=== PATIENT | male | born 1990 | race Caucasian/White ===

== ENCOUNTER 2020-05-11 17:01 | Emergency (ER) | payer MEDICAID, SELFPAY ==
[2020-05-11 17:10] VITALS: BP 122/60; PULSE 99; RESP 18; TEMP 36.9; O2SAT 100; BMI 27.8
--- NOTE | 2020-05-11 17:16 | PC.NURSE ---
pupil 4mm and reactive. is on phone for entirety of triage, talking to girlfriend.
[2020-05-11 17:30] LABS: MANUAL DIFF FLAG NO
[2020-05-11 17:34] LABS: Basophils Percent Auto 0.3 % (0-2); Eosinophils Percent Auto 0.3 % (0-4); Hematocrit 40.3 % (42-52); Hemoglobin 14.1 g/dl (14.0-18.0); Imm Gran Abs Auto 0.02 X10*3/uL (0.00-0.03); Imm Gran Pct Auto 0.3 % (0.0-0.4); Lymphocytes Absolute Auto 1.2 X10*3/uL (1.2-4.9); Lymphocytes Percent Auto 18.2 % (20-40); Mean Corpuscular Hemoglobin 30.2 pg (27.0-33.0); Mean Corpuscular Volume 86.3 fL (80-98); Mean Platelet Volume 10.3 fL (9.4-12.4); Monocytes Absolute Auto 0.6 X10*3/uL (0.1-1.2); Monocytes Percent Auto 9.3 % (2-11); Neutrophils Absolute Auto 4.8 X10*3/uL (2.0-8.3); Neutrophils Percent Auto 71.6 % (45-73); Platelet Count 233 X10*3/uL (160-400); Red Blood Count 4.67 X10*6/uL (4.60-5.80); Red Cell Distribution Width 11.7 % (11.0-16.0); White Blood Count 6.7 X10*3/uL (4.8-10.8)
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
[2020-05-11 18:08] LABS: Alanine Aminotransferase 17 U/L (0-40); Albumin Level 4.7 g/dL (3.5-5.0); Alkaline Phosphatase 57 U/L (39-117); Anion Gap 16 (12-20); Aspartate Amino Transferase 19 U/L (5-37); Bilirubin Direct 0.6 mg/dL (0.0-0.5); Bilirubin Total 1.5 mg/dL (0.0-1.0); Blood Urea Nitrogen 9 mg/dL (9-16); Calcium 9.5 mg/dL (8.4-10.2); Carbon Dioxide 25 mmol/L (22-29); Chloride 101 mmol/L (96-108); Creatinine Clr Calc Pharmacy 108.9; Estimated Glomerular Filt Rate > 60; Glucose Random 101 mg/dL (60-115); Magnesium 1.9 mg/dL (1.6-2.6); Potassium 3.1 mmol/l (3.3-5.1); Sodium 139 mmol/L (135-145); Total Protein 7.4 g/dL (6.5-8.0)
[2020-05-11] MEDS: lamoTRIgine 100 MG TABLET 200 MG PO (18:27)
[2020-05-11] MEDS: Ketorolac Tromethamine 30 MG/ML VIAL IVPUSH (18:27)
[2020-05-11 18:30] VITALS: BP 110/68; PULSE 66; RESP 18; O2SAT 95
--- NOTE | 2020-05-11 18:34 | PC.NURSE ---
Pt is more coherent. Speech is clear and at baseline pace. Skin pwd. No neuro deficits noted.
[2020-05-11] MEDS: Potassium Bicarbonate/Cit AC 25 MEQ TABLET.EFF PO (19:12)
== END 2020-05-11 19:17 | disposition home or self-care (01) ==
PROVIDERS: Emergency Provider Internal Medicine
DX: G40.909 Epilepsy, unspecified, not intractable, without status epilepticus (principal)
CPT/HCPCS: 36415; 80048; 80076; 83735; 85025; 96374; 99284; J1885

== ENCOUNTER 2020-05-13 19:08 | Emergency (ER) | payer MEDICAID, SELFPAY ==
[2020-05-13 19:28] VITALS: BP 146/78; PULSE 70; RESP 16; TEMP 36.8; O2SAT 99; BMI 29.2
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
--- NOTE | 2020-05-13 21:40 | PC.NURSE ---
PT IS UNABLE TO TOLERATE IM INJECTION. PT STATES HE IS HIGHLY AFRAID OF NEEDLES.
== END 2020-05-13 22:40 | disposition home or self-care (01) ==
PROVIDERS: Emergency Provider Emergency Medicine; PCP Internal Medicine
DX: M94.0 Chondrocostal junction syndrome [Tietze] (principal); S20.213A Contusion of bilateral front wall of thorax, initial encounter; Y35.93XA Legal intervention, means unspecified, suspect injured, initial encounter; Y93.9 Activity, unspecified; Y92.9 Unspecified place or not applicable; Y99.9 Unspecified external cause status
CPT/HCPCS: 71045; 96372; 99284; J1885

== ENCOUNTER 2020-06-15 21:34 | Emergency (ER) | payer MEDICAID, SELFPAY ==
[2020-06-15 21:42] VITALS: BP 147/72; PULSE 84; RESP 16; TEMP 37.2; O2SAT 100; BMI 29.2
--- NOTE | 2020-06-15 22:00 | ED_ITS ---
HPI - Skin/Abscess/Foreign Bdy General Chief complaint: Skin/Abscess/Foreign Body Stated complaint: Glued object to finger Time Seen by Provider: 06/15/20 22:00 Source: patient Mode of arrival: ambulatory Limitations: no limitations History of Present Illness HPI narrative: Patient comes to the emergency room with some loose tick to his left hand. Patient states he was gluing things together, he did not notice that it was glued on his fingers and the stick flew right his fingers and he was unable to get off. Patient denies any burning sensation, no significant skin irritation per patient. Related Data Allergies Allergy/AdvReac Type Severity Reaction Status Date / Time clindamycin [CLINDAMYCIN] Allergy Mild RASH Verified 05/11/20 17:10 beeswax [BEESWAX] Allergy Unknown UNK Verified 05/11/20 17:10 caffeine [CAFFEINE] Allergy Unknown UNK Verified 05/11/20 17:10 coconut [COCONUT] Allergy Unknown UNKNOWN Verified 05/11/20 17:10 shellfish derived Allergy Unknown UNK Verified 05/11/20 17:10 [SHELLFISH DERIVED] Sulfa (Sulfonamide Allergy Unknown UNKNOWN Verified 05/11/20 17:10 Antibiotics) [SULFA (SULFONAMIDE ANTIBIOTICS)] lorazepam [From ATIVAN] AdvReac Unknown MOOD CHANGE Verified 05/11/20 17:10 CHOCOLATE Allergy Unknown UNK Uncoded 04/15/20 16:10 Review of Systems Review of Systems: Constitutional : No Weight loss, No Fever, No Chills, No Night Sweats, No Fatigue, No Malaise ENT/Mouth : No Hearing loss, No Ear Pain, No Nasal Congestion, No Sinus Pain, No Hoarseness, No sore throat, No Rhinorrhea, No Swallowing Difficulty Eyes: No Eye Pain, No Swelling, No Redness, No Foreign Body, No Discharge, No Vision Changes Cardiovascular : No Chest Pain, No SOB, No Dyspnea on Exertion, No Orthopnea, No Edema, No Palpitations Respiratory : No Cough, No Sputum, No Wheezing, No Smoke Exposure, No Dyspnea Gastrointestinal : No Nausea, No Vomiting, No Diarrhea, No Constipation, No abdominal Pain, No Hematochezia, No Melena Genitourinary : no irregular bleeding, No Dysuria, No Urinary Frequency, No Hematuria, No Urinary Incontinence, No Urgency, No Flank Pain, No Urinary Flow Changes, No Hesitancy Musculoskeletal : No joint pain, No Myalgias, No Joint Swelling Skin : Glucose stick stuck to the patient's 4th left finger Neuro : No Weakness, No Numbness, No Paresthesias, No Loss of Consciousness, No Dizziness, No Headache Psych : No Anxiety/Panic, No Depression, No SI/HI/AH/VH, No Social Issues, Heme/Lymph: No Bruising, No Bleeding,No Lymphadenopathy Endocrine : No Polyuria, No Polydipsia, No Temperature Intolerance [facility] Past Medical History Medical History Seizure Social History Social History Alcohol intake: never Smoking Status: Unknown if ever smoked Smoked in Last 30 Days: No Use of substances other than those prescribed or required for medical reasons: No Advance Directives: No Advance Directives Information Provided: Yes Physical Exam Vital Signs: Vital Signs: Last Vital Signs Temp 99.0 F 06/15/20 21:42 Pulse 84 06/15/20 21:42 Resp 16 06/15/20 21:42 BP 147/72 H 06/15/20 21:42 Pulse Ox 100 06/15/20 21:42 Body Mass Index 29.2 Appearance: Alert. Oriented X3. No acute distress. Eyes: Pupils equal, round and reactive to light. ENT: Pharynx normal. Neck: Normal inspection. Neck supple. No lymph nodes noted. No crepitus CVS: Normal heart rate and rhythm. Pulses normal. Normal S1 and S2 Respiratory: No respiratory distress. Breath sounds normal. No Wheezing. No rales Abdomen: Soft and nontender. No rigidity. No distention. good BS x4 Skin: Skin warm , most of the glue came off Extremities: No lower extremity edema. No lower extremity edema. No Lacerations. No Rash Neuro: Oriented X 3. No motor deficit. No sensory deficit. Moving all extermities. No slurred speech. Course Course Course Narrative: Adhesive tape removal wipes were used to remove the glue and were clearly well for the patient. Patient has minimal amount in his fingers, which will likely ventrally peel off. No signs of irritation Discharge Plan Discharge Clinical Impression: Glued skin wound, Skin lesion of hand Patient Disposition: Home, Self-Care Additional Instructions: Please be careful when using Super glue. Please follow-up with your primary care physician tomorrow. If you have any worsening or new symptoms, please return to the emergency room or call 911
--- NOTE | 2020-06-15 22:19 | PC.NURSE ---
SUPER GLUE REMOVED FROM LEFT POINTER FINGER BY DR. VILLALTA.
== END 2020-06-15 22:23 | disposition home or self-care (01) ==
PROVIDERS: Emergency Provider Emergency Medicine; PCP Internal Medicine
DX: S60.922A Unspecified superficial injury of left hand, initial encounter (principal); M79.642 Pain in left hand; Y33.XXXA Other specified events, undetermined intent, initial encounter; Y93.9 Activity, unspecified; Y92.9 Unspecified place or not applicable; Y99.9 Unspecified external cause status
CPT/HCPCS: 99284

== ENCOUNTER 2020-06-20 23:01 | Emergency (ER) | payer MEDICAID, SELFPAY ==
[2020-06-20 23:26] VITALS: BP 128/77; PULSE 68; RESP 20; TEMP 37.1; O2SAT 96; BMI 25.9
[2020-06-20 23:48] LABS: Basophils Percent Auto 0.2 % (0-2); Eosinophils Absolute Auto 0.1 X10*3/uL (0.0-0.4); Eosinophils Percent Auto 0.6 % (0-4); Hematocrit 43.4 % (42-52); Hemoglobin 14.7 g/dl (14.0-18.0); Imm Gran Abs Auto 0.07 X10*3/uL (0.00-0.03); Imm Gran Pct Auto 0.8 % (0.0-0.4); Lymphocytes Absolute Auto 2.2 X10*3/uL (1.2-4.9); Lymphocytes Percent Auto 24.1 % (20-40); MANUAL DIFF FLAG NO; Mean Corpuscular HGB Conc 33.9 g/dl (31.0-36.0); Mean Corpuscular Hemoglobin 30.3 pg (27.0-33.0); Mean Corpuscular Volume 89.5 fL (80-98); Mean Platelet Volume 10.1 fL (9.4-12.4); Monocytes Absolute Auto 0.8 X10*3/uL (0.1-1.2); Monocytes Percent Auto 9.1 % (2-11); Neutrophils Absolute Auto 5.9 X10*3/uL (2.0-8.3); Neutrophils Percent Auto 65.2 % (45-73); Platelet Count 275 X10*3/uL (160-400); Red Blood Count 4.85 X10*6/uL (4.60-5.80); White Blood Count 9.1 X10*3/uL (4.8-10.8)
--- NOTE | 2020-06-20 23:48 | PC.NURSE ---
spoke with patient's mother (Marquita) over the phone ([phone]). Marquita states that her son takes Lamictal 150mg BID and is seen by at [facility]. Pt has known seizure history, normally uses [facility] in [place]. Multiple allergies confirmed by mother. notified. Mother requests updates when available. Given status update.
--- NOTE | 2020-06-21 | CT_ITS ---
EXAMINATION: CT HEAD WITHOUT CONTRAST CLINICAL INFORMATION: Status post fall with seizure COMPARISON: 03/31/2015 TECHNIQUE: Contiguous axial imaging was performed from the skull base to vertex without intravenous administration of contrast. This CT examination was performed using dose optimization techniques as appropriate, variously including the following: *Automated exposure control *Adjustment of mA and/or kV according to patient size (this includes techniques or standardized protocols for targeted exams where dose is matched to indication/reason for exam; i.e. extremities or head) *Use of iterative reconstruction technique DLP: 803 mGy-cm FINDINGS: There is no evidence of acute intracranial hemorrhage or territorial infarction. No abnormal mass effect or midline shift is seen. Sosa to white matter differentiation is well preserved. No extra-axial fluid collections are identified. The ventricles are normal in size. There is no abnormal attenuation within the brain parenchyma. The osseous structures and soft tissues are normal. Mucosal thickening in the maxillary sinuses and suspected right maxillary sinus mucus retention cyst. The mastoid air cells are well-aerated. CT/CT head/brain wo con IMPRESSION: No acute intracranial pathology.
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
[2020-06-21 00:21] LABS: Alanine Aminotransferase 16 U/L (0-40); Albumin Level 4.4 g/dL (3.5-5.0); Alkaline Phosphatase 61 U/L (39-117); Anion Gap 13 (12-20); Aspartate Amino Transferase 19 U/L (5-37); Bilirubin Direct 0.2 mg/dL (0.0-0.5); Bilirubin Total 0.3 mg/dL (0.0-1.0); Blood Urea Nitrogen 8 mg/dL (9-16); Carbon Dioxide 28 mmol/L (22-29); Chloride 103 mmol/L (96-108); Creatinine Clr Calc Pharmacy 110.4; Estimated Glomerular Filt Rate > 60; Glucose Random 81 mg/dL (60-115); Potassium 3.7 mmol/l (3.3-5.1); Sodium 140 mmol/L (135-145)
--- NOTE | 2020-06-21 00:22 | PC.NURSE ---
IMAGING IN PROGRESS AT THIS TIME. WILL CONTINUE TO MONITOR UPON RETURN TO ED BED 22. SEIZURE PRECAUTIONS REMAIN IN PLACE. PT REMAINS CONFUSED/POST-ICTAL. 18G IV ACCESS ESTABLISHED IN RIGHT AC BY THIS RN. LABS PREVIOUSLY DRAWN AND SENT FOR ANALYSIS. AWAITING LAB RESULTS.
--- NOTE | 2020-06-21 00:33 | PC.NURSE ---
PATIENT SLEEPING AT THIS TIME, RE-POSITIONED HIMSELF TO LEFT SIDE. AWAITING RESULTS. RESPIRATIONS EVEN/UNLABORED. WILL CONTINUE TO MONITOR. SEIZURE PRECAUTIONS REMAIN IN PLACE.
== END 2020-06-21 01:42 | disposition home or self-care (01) ==
PROVIDERS: Emergency Provider Internal Medicine; PCP Internal Medicine
DX: R56.9 Unspecified convulsions (principal); Z79.899 Other long term (current) drug therapy
CPT/HCPCS: 36415; 70450; 80048; 80076; 85025; 99283; 99284

== ENCOUNTER 2020-06-23 00:53 | Emergency (ER) | payer MEDICAID, SELFPAY ==
[2020-06-23 01:01] VITALS: BP 125/79; BP 147/74; PULSE 66; PULSE 80; RESP 16; TEMP 37.2; O2SAT 95; O2SAT 99; BMI 30.1
--- NOTE | 2020-06-23 01:02 | ED.SEIZURE ---
HPI - Seizure General Chief Complaint: Seizure Stated Complaint: MULTIPLE SEIZURES Time Seen by Provider: 06/23/20 00:59 Source: patient and family Mode of arrival: ambulatory History of Present Illness HPI Narrative: As per EMS family witnessed 2 seizures at home. And was combative afterwards. However upon arrival to the emergency department patient was, collected and states that he had seizure. Patient states he is on Lamictal and has been taking it. Denies any recent illness, fevers chills, nausea vomiting or abdominal pain. Patient was here several days ago in the emergency department for similar and has not followed up with the neurologist complaint: seizure Onset (ago): hour(s) Description of Episode: loss of consciousness Witnessed: Yes - by Bystander Seizure History: Yes Possible Precipitating Event: none Related Data Home Medications Medication Instructions Recorded Confirmed lamotrigine 350 mg PO DAILY 06/23/20 06/23/20 Allergies Allergy/AdvReac Type Severity Reaction Status Date / Time clindamycin [CLINDAMYCIN] Allergy Mild RASH Verified 05/11/20 17:10 beeswax [BEESWAX] Allergy Unknown UNK Verified 05/11/20 17:10 caffeine [CAFFEINE] Allergy Unknown UNK Verified 05/11/20 17:10 coconut [COCONUT] Allergy Unknown UNKNOWN Verified 05/11/20 17:10 shellfish derived Allergy Unknown UNK Verified 05/11/20 17:10 [SHELLFISH DERIVED] Sulfa (Sulfonamide Allergy Unknown UNKNOWN Verified 05/11/20 17:10 Antibiotics) [SULFA (SULFONAMIDE ANTIBIOTICS)] lorazepam [From ATIVAN] AdvReac Unknown MOOD CHANGE Verified 05/11/20 17:10 CHOCOLATE Allergy Unknown UNK Uncoded 04/15/20 16:10 Review of Systems Review of Systems: Constitutional : No Weight loss, No Fever, No Chills, No Night Sweats, No Fatigue, No Malaise ENT/Mouth : No Hearing loss, No Ear Pain, No Nasal Congestion, No Sinus Pain, No Hoarseness, No sore throat, No Rhinorrhea, No Swallowing Difficulty Eyes: No Eye Pain, No Swelling, No Redness, No Foreign Body, No Discharge, No Vision Changes Cardiovascular : No Chest Pain, No SOB, No Dyspnea on Exertion, No Orthopnea, No Edema, No Palpitations Respiratory : No Cough, No Sputum, No Wheezing, No Smoke Exposure, No Dyspnea Gastrointestinal : No Nausea, No Vomiting, No Diarrhea, No Constipation, No abdominal Pain, No Hematochezia, No Melena Genitourinary : no irregular bleeding, No Dysuria, No Urinary Frequency, No Hematuria, No Urinary Incontinence, No Urgency, No Flank Pain, No Urinary Flow Changes, No Hesitancy Musculoskeletal : No joint pain, No Myalgias, No Joint Swelling Skin : No Skin Lesions, No rash Neuro : No Weakness, No Numbness, No Paresthesias, positive Loss of Consciousness, No Dizziness, No Headache Psych : No Anxiety/Panic, No Depression, No SI/HI/AH/VH, No Social Issues, Heme/Lymph: No Bruising, No Bleeding,No Lymphadenopathy Endocrine : No Polyuria, No Polydipsia, No Temperature Intolerance [facility] Past Medical History Medical History Seizure Family History Family History (Updated 06/23/20 @ 01:08 by Andre Whalen DO) Other Family history non-contributory Social History Social History Alcohol intake: never Smoking Status: Unknown if ever smoked Smoked in Last 30 Days: No Use of substances other than those prescribed or required for medical reasons: Yes Advance Directives: No Advance Directives Information Provided: No Physical Exam Vital Signs: Vital Signs: Last Vital Signs Temp 98 F 06/23/20 04:00 Pulse 58 06/23/20 04:00 Resp 15 06/23/20 04:00 BP 101/54 L 06/23/20 04:00 Pulse Ox 98 06/23/20 04:00 Body Mass Index 30.1 Appearance: Alert. Oriented X3. No acute distress. Eyes: Pupils equal, round and reactive to light. ENT: Pharynx normal. Neck: Normal inspection. Neck supple. No lymph nodes noted. No crepitus CVS: Normal heart rate and rhythm. Pulses normal. Normal S1 and S2 Respiratory: No respiratory distress. Breath sounds normal. No Wheezing. No rales Abdomen: Soft and nontender. No rigidity. No distention. good BS x4 Skin: Skin warm and dry. Normal skin color. Normal skin turgor. Extremities: No lower extremity edema. Neurovascular intact to all extremities. No Lacerations. No Rash Neuro: Oriented X 3. No motor deficit. No sensory deficit. Moving all extermities. No slurred speech. Course Course Course Narrative: Patient in the emergency department given 0.5 mg Ativan. Patient did not have a seizure in the emergency department. We had a long discussion in regards to his Lamictal however he refuses to increase it. Which was discussed with him last visit. Patient states he rather wait to call his neurologist in the morning under further directions for his medications. I offered prescription for Ativan however he states he does not want. Laboratory work within normal limits MDM - Seizure MDM Narrative Medical decision making narrative: 29-year-old male status post seizure at home. Patient refusing to increase his home medications and prefers to wait until he talks as neurologist. I offered to call neurologist however patient declines and wants to go home. Laboratory work within normal limits. At this point I doubt the patient has encephalitis or some type of infection patient states that he has been very difficult to manage his seizures with different medications Medical Records Attestation: I reviewed the patient's medical records. Medical records narrative: Patient was here several days ago a CT scan negative brain. Was discharged with increased Lamictal secondary to seizure Patient has been seen here before for seizures in which has been documented that he has been highly resistant to medications for his seizures Lab Data Attestation: I reviewed the patient's lab results. Result diagrams: 06/23/20 01:22 06/23/20 01:22 Labs: Lab Results 06/23/20 06/23/20 Range/Units 01:22 01:22 WBC 9.0 (4.8-10.8) X10*3/uL RBC 4.91 (4.60-5.80) X10*6/uL Hgb 14.7 (14.0-18.0) g/dl Hct 42.9 (42-52) % MCV 87.4 (80-98) fL MCH 29.9 (27.0-33.0) pg MCHC 34.3 (31.0-36.0) g/dl RDW 11.0 (11.0-16.0) % Plt Count 261 (160-400) X10*3/uL MPV 10.1 (9.4-12.4) fL Immature Gran % (Auto) 1.0 H (0.0-0.4) % Neut % (Auto) 64.9 (45-73) % Lymph % (Auto) 22.9 (20-40) % [place] % (Auto) 10.3 (2-11) % Eos % (Auto) 0.7 (0-4) % Baso % (Auto) 0.2 (0-2) % Lymph # (Auto) 2.1 (1.2-4.9) X10*3/uL [place] # (Auto) 0.9 (0.1-1.2) X10*3/uL Eos # (Auto) 0.1 (0.0-0.4) X10*3/uL Baso # (Auto) 0.0 (0.0-0.2) X10*3/uL Abs Immat Gran (auto) 0.09 H (0.00-0.03) X10*3/uL Absolute Neuts (auto) 5.8 (2.0-8.3) X10*3/uL Absolute Nucleated RBC 0.000 (0.0-0.012) X10*3/uL Nucleated RBC % (auto) 0.0 (0.0-0.2) /100WBC Sodium 139 (135-145) mmol/L Potassium 3.7 (3.3-5.1) mmol/l Chloride 104 (96-108) mmol/L Carbon Dioxide 25 (22-29) mmol/L Anion Gap 14 (12-20) BUN 13 D (9-16) mg/dL Creatinine 0.83 (0.5-1.4) mg/dL Estim Creat Clear Calc 150.7 Estimated GFR > 60 Random Glucose 93 (60-115) mg/dL Calcium 9.5 (8.4-10.2) mg/dL Magnesium 2.1 (1.6-2.6) mg/dL Discharge Plan Discharge Clinical Impression: Epileptic seizure Patient Disposition: Home, Self-Care Instructions: Epilepsy (ED) Additional Instructions: Thank you for visiting the emergency department today. If your symptoms worsen or do not resolve completely please return to the emergency department immediately or call 911. If you have any questions please call your primary care physician Prescriptions: No Action lamotrigine 200 mg Tablet 350 mg PO DAILY RF: 0 Referrals: [facility] [Provider Group] - 2 days Interventions: ED Discharge Assessment Last Done: 06/23/20 04:07 Discharge Date/Time: 06/23/20 04:07
[2020-06-23 01:08] VITALS: BP 147/74; PULSE 71; RESP 16; TEMP 37.2; O2SAT 97
[2020-06-23 01:35] LABS: MANUAL DIFF FLAG NO
[2020-06-23 01:38] LABS: Basophils Percent Auto 0.2 % (0-2); Eosinophils Absolute Auto 0.1 X10*3/uL (0.0-0.4); Eosinophils Percent Auto 0.7 % (0-4); Hematocrit 42.9 % (42-52); Hemoglobin 14.7 g/dl (14.0-18.0); Imm Gran Abs Auto 0.09 X10*3/uL (0.00-0.03); Lymphocytes Absolute Auto 2.1 X10*3/uL (1.2-4.9); Lymphocytes Percent Auto 22.9 % (20-40); Mean Corpuscular HGB Conc 34.3 g/dl (31.0-36.0); Mean Corpuscular Hemoglobin 29.9 pg (27.0-33.0); Mean Corpuscular Volume 87.4 fL (80-98); Mean Platelet Volume 10.1 fL (9.4-12.4); Monocytes Absolute Auto 0.9 X10*3/uL (0.1-1.2); Monocytes Percent Auto 10.3 % (2-11); Neutrophils Absolute Auto 5.8 X10*3/uL (2.0-8.3); Neutrophils Percent Auto 64.9 % (45-73); Platelet Count 261 X10*3/uL (160-400); Red Blood Count 4.91 X10*6/uL (4.60-5.80)
[2020-06-23 02:00] VITALS: BP 121/61; PULSE 51; RESP 17; O2SAT 97
[2020-06-23 02:12] LABS: Anion Gap 14 (12-20); Blood Urea Nitrogen 13 mg/dL (9-16); Calcium 9.5 mg/dL (8.4-10.2); Carbon Dioxide 25 mmol/L (22-29); Chloride 104 mmol/L (96-108); Creatinine Clr Calc Pharmacy 150.7; Estimated Glomerular Filt Rate > 60; Glucose Random 93 mg/dL (60-115); Magnesium 2.1 mg/dL (1.6-2.6); Potassium 3.7 mmol/l (3.3-5.1); Sodium 139 mmol/L (135-145)
[2020-06-23 04:00] VITALS: BP 101/54; PULSE 58; RESP 15; TEMP 36.6; O2SAT 98
== END 2020-06-23 04:07 | disposition home or self-care (01) ==
PROVIDERS: Emergency Provider Emergency Medicine
DX: G40.909 Epilepsy, unspecified, not intractable, without status epilepticus (principal); Z79.899 Other long term (current) drug therapy
CPT/HCPCS: 36415; 80048; 83735; 85025; 99283; 99284

== ENCOUNTER 2020-07-19 02:20 | Emergency (ER) | payer MEDICAID, SELFPAY ==
--- NOTE | 2020-07-19 02:17 | PC.NURSE ---
[facility] staff with patient, spoke briefly with patient, since patient was medicated with Ativan 2 mg, DCF worker decided to come tomorrow, wanted us to give them call [facility] hotline @ [phone] and ask for Dolores Cast in the morning. and left.
--- NOTE | 2020-07-19 02:22 | PC.NURSE ---
[facility] with patient, patient engaged, will continue to monitor.
[2020-07-19 02:32] VITALS: BP 133/76; BP 144/76; PULSE 61; PULSE 70; RESP 21; TEMP 36.6; O2SAT 97; O2SAT 99; BMI 28.4
--- NOTE | 2020-07-19 02:51 | CT_ITS ---
EXAMINATION: CT HEAD WITHOUT CONTRAST CLINICAL INFORMATION: Fall, seizure. COMPARISON: 06/21/2020. TECHNIQUE: Contiguous helical images of the brain were obtained without IV contrast. Multiplanar reconstructions were performed. DLP: 828 mGy-cm. FINDINGS: There are no pathologic extra-axial fluid collections. The lateral, third, fourth ventricles are nondilated and concordant with the appearance of the sulci. There is no evidence for acute intraparenchymal hemorrhage or infarct. There is neither mass nor mass effect. There is no shift of midline structures. There is a mucus retention cyst or polyp within the right maxillary sinus. There is moderate mucosal thickening to the left maxillary sinus. The paranasal sinuses and mastoid air cells are otherwise clear. There are no osseous lesions. CT/CT head/brain wo con IMPRESSION: No evidence for acute intracranial injury. Automated exposure control (Care Dose) Adjustment of the mA and/or kv according to patient size (this includes techniques or standardized protocols for targeted exams where dose is matched to indication / reason for exam; i.e. extremities or head).
--- NOTE | 2020-07-19 02:51 | ED.SEIZURE ---
HPI - Seizure General Chief Complaint: Seizure Stated Complaint: seizure Time Seen by Provider: 07/19/20 02:40 Source: patient Mode of arrival: ambulatory Limitations: no limitations History of Present Illness HPI Narrative: Patient's history of dullness tonic-clonic seizure for last 6 years used to be on Lamictal 375 mg daily ,started on Keppra but patient stopped stopped taking both medicines because of mood swings about 2 weeks ago. Patient had a seizure last week and today again while standing talking to his girlfriend felt funny and next thing he found himself on the ground hitting his head to the floor no other injuries seizures witnessed by his mother MD complaint: seizure Onset (ago): minute(s) Description of Episode: loss of consciousness Duration of episode: 3 -: minutes(s) Witnessed: Yes - by Other Trauma: Yes (head) Seizure History: Yes Place: Home Possible Precipitating Event: none Associated symptoms: denies other symptoms Treatments prior to arrival: none Related Data Home Medications Medication Instructions Recorded Confirmed lamotrigine 350 mg PO DAILY 06/23/20 06/23/20 Previous Rx's Medication Instructions Recorded lamotrigine [Lamictal] 25 mg PO DAILY 14 Days #14 tab 07/19/20 Allergies Allergy/AdvReac Type Severity Reaction Status Date / Time clindamycin [CLINDAMYCIN] Allergy Mild RASH Verified 07/19/20 02:32 beeswax [BEESWAX] Allergy Unknown UNK Verified 07/19/20 02:32 caffeine [CAFFEINE] Allergy Unknown UNK Verified 07/19/20 02:32 coconut [COCONUT] Allergy Unknown UNKNOWN Verified 07/19/20 02:32 shellfish derived Allergy Unknown UNK Verified 07/19/20 02:32 [SHELLFISH DERIVED] Sulfa (Sulfonamide Allergy Unknown UNKNOWN Verified 07/19/20 02:32 Antibiotics) [SULFA (SULFONAMIDE ANTIBIOTICS)] lorazepam [From ATIVAN] AdvReac Unknown MOOD CHANGE Verified 07/19/20 02:32 levetiracetam [From Keppra] AdvReac Agitated Verified 07/19/20 02:32 CHOCOLATE Allergy Unknown UNK Uncoded 07/19/20 02:32 Review of Systems Review of Systems: Constitutional : No Weight loss, No Fever, No Chills ENT/Mouth : No sore throat, No Rhinorrhea Eyes: No Eye Pain, No Swelling Cardiovascular : No Chest Pain, no Dyspnea on Exertion, No Orthopnea, No Edema, No Palpitations, no SOB Respiratory : No Cough, No Sputum Gastrointestinal : no Nausea, No Vomiting, No Diarrhea, No abdominal Pain, No Hematochezia, No Melena Genitourinary : No Dysuria, No Urinary Frequency Musculoskeletal : No joint pain, No Myalgias, No Joint Swelling Skin : No Skin Lesions, No rash Neuro : No Weakness, No Numbness, No Dizziness, Psych : No Anxiety/Panic, No Depression Heme/Lymph: No Bruising, No Lymphadenopathy Endocrine : No Polyuria, No Polydipsia All other systems reviewed and are negative PMFSH Past Medical History Medical History Seizure Family History Family History Other Family history non-contributory Social History Social History Alcohol intake: never Smoking Status: Unknown if ever smoked Smoked in Last 30 Days: No Use of substances other than those prescribed or required for medical reasons: No Any prior treatment program specific to substance use: No Advance Directives: No Advance Directives Information Provided: No Physical Exam Vital Signs: Vital Signs: Last Vital Signs Temp 97.8 F 07/19/20 02:32 Pulse 68 07/19/20 04:04 Resp 18 07/19/20 04:04 BP 118/70 07/19/20 04:04 Pulse Ox 96 07/19/20 04:04 Body Mass Index 28.4 Appearance: Alert. Oriented X3. No acute distress. Sleepy postictal Eyes: Pupils equal, round and reactive to light. ENT: Pharynx normal. Tongue normal Neck: Normal inspection. Neck supple. CVS: Normal heart rate and rhythm. Pulses normal. Respiratory: No respiratory distress. Breath sounds normal. Abdomen: Soft and nontender. Bowel sounds are present, no mass palpable, no CVA tenderness Skin: Skin warm and dry. Normal skin color. Normal skin turgor. Extremities: No lower extremity edema. Neuro: Oriented X 3. No motor deficit. No sensory deficit. MDM - Seizure MDM Narrative Medical decision making narrative: Patient's history of epilepsy used to be on Lamictal and a month ago started on Keppra also which he did not like patientstopped taking all medication all of a sudden 2 weeks ago, at this time came with a seizure at this time head CT is negative patient ambulatory will restart on Lamictal per patient request 25 mg daily for now advised to follow-up with neurologist patient's CT scan negative for any acute. Patient re-educated about not to stop medication all of a sudden for the side effects and follow with neurologist Discharge Plan Discharge Clinical Impression: Generalized seizure Patient Disposition: Home, Self-Care Instructions: Epilepsy (ED) Additional Instructions: See the neurologist for further workup start taking Lamictal for now Prescriptions: New lamotrigine [Lamictal] 25 mg tablet 25 mg PO DAILY 14 Days Qty: 14 RF: 0 No Action lamotrigine 200 mg Tablet 350 mg PO DAILY RF: 0 Referrals: Subha Reyes MD [Physician] - 1 week (Epilepsy) Stand Alone Forms: Work/School Release
[2020-07-19 04:04] VITALS: BP 118/70; PULSE 68; RESP 18; O2SAT 96
--- NOTE | 2020-07-19 04:23 | PC.NURSE ---
pt arrives via ambualnce harry x 3 with equal and non labored rr. pt skin wpd. iv established by [facility] 18 gauge left ac. pt speaking in clear and full sentences. pt neuro intact. pt not collared on arrival due to patient refusal. Pt has no obvious deformities at this time. pt states seizure hx starting in 2013. has been seen at [facility] and [place]. pt states he has tried lots of seizure medications. pt has adverse reaction to keppra and ativan it causes negative psychiatric problems with patient including self harm which patient denies at baseline and denies during admission. pt had 3-4 minute long tonic clonic seizure witnessed by phyllis where patient hit his head after falling from standing height. pt states headache but no injuries noted. plan for ct scan. seizure pads placed
--- NOTE | 2020-07-19 04:30 | PC.NURSE ---
ambulation challenge then dc per dr hatch
--- NOTE | 2020-07-19 04:32 | PC.NURSE ---
pt ambulated with a steady gait, dr hatch visualized patient.
== END 2020-07-19 04:47 | disposition home or self-care (01) ==
PROVIDERS: Emergency Provider Internal Medicine
DX: G40.409 Other generalized epilepsy and epileptic syndromes, not intractable, without status epilepticus (principal); Z91.14 Patient's other noncompliance with medication regimen
CPT/HCPCS: 70450; 99284

== ENCOUNTER 2020-08-08 01:02 | Emergency (ER) | payer MEDICAID, SELFPAY ==
[2020-08-08 01:10] VITALS: BP 132/78; BP 160/92; PULSE 64; PULSE 70; RESP 18; TEMP 36.9; O2SAT 96; O2SAT 97; BMI 29.2
--- NOTE | 2020-08-08 01:15 | PC.NURSE ---
PT PLACED ON HEART MONITOR, VITALS SIGNS TAKEN. PT IS A&O, NO SOB OR CHEST PAIN. PT COMPLAINING OF NECK AND LEG PAIN , C-SPINE PRECAUTIONS IN PLACE.
--- NOTE | 2020-08-08 02:48 | PC.NURSE ---
pt a&o, wanting to leave against medical advice. Pt has stable gate, on the phone call for ride. pt wanting IV to be removed and c-spine collar.
--- NOTE | 2020-08-08 03:03 | ED.GENADULT ---
HPI - General Adult General Chief complaint: Seizure Stated complaint: seizure Time Seen by Provider: 08/08/20 02:58 Source: patient Mode of arrival: EMS Limitations: no limitations History of Present Illness HPI narrative: 29-year-old male who presented to the emergency department for evaluation of injuries after seizure. The patient had to wait approximately 2 hours prior to being seen secondary to ER volume. When I went in to evaluate the patient he was on the phone. The patient refused to get off the phone. The patient told me that he did not want to be seen since he had waited too long and we did take him seriously and he wants to leave without being evaluated. I told the patient that I was in the room now to see him and that I would like to talk to examine him but he refused to talk to me and is requesting to leave against medical advice. Related Data Home Medications Medication Instructions Recorded Confirmed lamotrigine 350 mg PO DAILY 06/23/20 06/23/20 Previous Rx's Medication Instructions Recorded lamotrigine [Lamictal] 25 mg PO DAILY 14 Days #14 tab 07/19/20 Allergies Allergy/AdvReac Type Severity Reaction Status Date / Time clindamycin [CLINDAMYCIN] Allergy Mild RASH Verified 07/19/20 02:32 beeswax [BEESWAX] Allergy Unknown UNK Verified 07/19/20 02:32 caffeine [CAFFEINE] Allergy Unknown UNK Verified 07/19/20 02:32 coconut [COCONUT] Allergy Unknown UNKNOWN Verified 07/19/20 02:32 shellfish derived Allergy Unknown UNK Verified 07/19/20 02:32 [SHELLFISH DERIVED] Sulfa (Sulfonamide Allergy Unknown UNKNOWN Verified 07/19/20 02:32 Antibiotics) [SULFA (SULFONAMIDE ANTIBIOTICS)] lorazepam [From ATIVAN] AdvReac Unknown MOOD CHANGE Verified 07/19/20 02:32 levetiracetam [From Keppra] AdvReac Agitated Verified 07/19/20 02:32 CHOCOLATE Allergy Unknown UNK Uncoded 07/19/20 02:32 PMFSH Past Medical History Medical History Seizure Family History Family History Other Family history non-contributory Social History Social History Alcohol intake: never Smoking Status: Never smoker Use of substances other than those prescribed or required for medical reasons: No Advance Directives: No Advance Directives Information Provided: No Physical Exam Vital Signs: Vital Signs: Last Vital Signs Temp 98.4 F 08/08/20 01:10 Pulse 64 08/08/20 01:10 Resp 18 08/08/20 01:10 BP 132/78 08/08/20 01:10 Pulse Ox 96 08/08/20 01:10 Body Mass Index 29.2 Course Course Course Narrative: 29-year-old male with history of seizure disorders apparently noncompliant with medications. The patient does not want evaluated by wants to leave against medical advice. Patient appears to be awake alert and capable of understanding consequences of refusing care therefore he will be discharged against medical advise. Discharge Plan Discharge Clinical Impression: Seizure Patient Disposition: Left Against Medical Advice Additional Instructions: You are refusing to be examined. Your leaving the emergency department against medical advice. If you change your mind and want to be evaluated, please return to the emergency department. Prescriptions: No Action lamotrigine 200 mg Tablet 350 mg PO DAILY RF: 0 lamotrigine [Lamictal] 25 mg tablet 25 mg PO DAILY 14 Days Qty: 14 RF: 0 Stand Alone Forms: Against Medical Advice
--- NOTE | 2020-08-08 03:07 | PC.NURSE ---
PATIENTS MOTHER CALLING THE FACILITY TO SPEAK WITH THIS SKIRT CLIPPER. MOTHER UPSET THAT PATIENT WAS NOT WEARING A MASK WHILE ALONE IN HIS OWN ROOM MORE THAN 6 FEET FROM ANY OTHER PATIENT. THEN BLAMING STAFF THAT ITS THE HOSPITALS FAULT HE HAS TO NOW QUARANTINE FOR 2 WEEKS. MOTHER STATING THAT EVEN WITH MY HIGH SCHOOL EDUCATION I AM SMARTER THAT THAT, AND HOW LONG DID YOU ALL HAVE TO GO TO SCHOOL FOR . ASKING FAMILY MEMBER IF THEY KNEW ABOUT ASPIRATION RISK. THEN HUNG UP ON THIS NURSE, AFTER STATING SHE WAS CALLING HER LAYWER. PATIENT WAS GIVEN A MASK WHEN HE TOOK OFF HE C-COLLAR AND ATTEMPTING TO TAKE OUT HIS IV AND REFUSED TO BE SEEN BY THE DOCTOR. PATIENT THEN REFUSING TO WEAR A MASK. WHAT IS THE POINT NOW ANYWAY . PATIENT THEN YELLING AT THE PROVIDER WHO IS SEEING HIM, THAT HE IS LEAVING AMA AND WILL NOT STAY TO GET TREATED. STATING I HAVEN'T BEEN ABLE TO SEE MY FOR THE PAST [address] . PATIENT THEN STORMING OUT OF THE EMERGENCY DEPARTMENT WALKING PAST OTHER PATIENT WITHOUT WEARING A MASK. CONTINUES TO REFUSE TO WEAR A MASK WHEN OUTSIDE OF HIS ROOM.
--- NOTE | 2020-08-08 03:15 | PC.NURSE ---
RN AT BEDSIDE DURING MD EXAM, PT VERBALLY ABUSIVE TO BOTH MD & RN STATING- OBVIOUSLY YOU DONT GIVE A FUCK ABOUT ME OR COVID PT WAS GIVEN MASK AFTER PTS MOTHER CALLED AND YELLED AT CHARGE NURSE THAT PT WAS IN A ROOM W/NO MASK. PT WAS GIVEN MASK- PT DECLINED TO TAKE MASK STATING WHY DOES IT FUCKING MATTER NOW
== END 2020-08-08 03:13 | disposition left against medical advice (07) ==
PROVIDERS: Emergency Provider Emergency Medicine Emergency Medical Services
DX: R56.9 Unspecified convulsions (principal); Z79.899 Other long term (current) drug therapy
CPT/HCPCS: 99282; 99284

== ENCOUNTER 2020-12-03 23:44 | Emergency (ER) | payer MEDICAID, SELFPAY ==
[2020-12-03 23:47] VITALS: BP 120/70; PULSE 65; RESP 16; TEMP 36.6; O2SAT 98; BMI 30.8
--- NOTE | 2020-12-04 00:16 | ED.EAR ---
HPI - Ear Problem General Chief complaint: Ear Problems Stated complaint: EAR PAIN Time Seen by Provider: 12/04/20 00:01 Source: patient Mode of arrival: ambulatory History of Present Illness HPI Narrative: 30-year-old male with a past medical history of epilepsy presenting to the ED complaining of right ear pain radiating to right trauma and nausea x1 day. Reports pain to external ear. Denies no unbearable trauma, recent swimming, hearing loss, drainage from ear, dental procedure/intraoral pain, sore throat, cough, fever, chills MD Complaint: ear pain Location: right ear Related Data Home Medications Medication Instructions Recorded Confirmed lamotrigine 350 mg PO DAILY 06/23/20 06/23/20 Previous Rx's Medication Instructions Recorded lamotrigine [Lamictal] 25 mg PO DAILY 14 Days #14 tab 07/19/20 ciprofloxacin-dexamethasone 4 drp OTIC (EARS) BID 7 Days ml 12/04/20 [Ciprodex] Allergies Allergy/AdvReac Type Severity Reaction Status Date / Time clindamycin [CLINDAMYCIN] Allergy Mild RASH Verified 07/19/20 02:32 beeswax [BEESWAX] Allergy Unknown UNK Verified 07/19/20 02:32 caffeine [CAFFEINE] Allergy Unknown UNK Verified 07/19/20 02:32 coconut [COCONUT] Allergy Unknown UNKNOWN Verified 07/19/20 02:32 shellfish derived Allergy Unknown UNK Verified 07/19/20 02:32 [SHELLFISH DERIVED] Sulfa (Sulfonamide Allergy Unknown UNKNOWN Verified 07/19/20 02:32 Antibiotics) [SULFA (SULFONAMIDE ANTIBIOTICS)] lorazepam [From ATIVAN] AdvReac Unknown MOOD CHANGE Verified 07/19/20 02:32 levetiracetam [From Keppra] AdvReac Agitated Verified 07/19/20 02:32 CHOCOLATE Allergy Unknown UNK Uncoded 07/19/20 02:32 Review of Systems Review of Systems: Constitutional: No Weight loss, No Fever, No Chills ENT/Mouth: + Ear Pain, No Nasal Congestion, No Sinus Pain, No Hoarseness, No sore throat, No Rhinorrhea, No Swallowing Difficulty Cardiovascular: No Chest Pain, No SOB Respiratory: No Cough, No Wheezing Gastrointestinal: + Nausea, No Vomiting Musculoskeletal: No joint pain, No Myalgias Skin: No Skin Lesions, No rash Yes all other systems are reviewed and are negative [facility] Past Medical History Attestation statement: The following information was validated with the patient. Medical History Seizure Family History Family History Other Family history non-contributory Social History Social History Alcohol intake: never Smoking Status: Never smoker Advance Directives: No Advance Directives Information Provided: No Physical Exam Vital Signs: Vital Signs: Last Vital Signs Temp 97.8 F 12/03/20 23:47 Pulse 65 12/03/20 23:47 Resp 16 12/03/20 23:47 BP 120/70 12/03/20 23:47 Pulse Ox 98 12/03/20 23:47 Body Mass Index 30.8 Const: General: cooperative, healthy appearing, comfortable, no acute distress, well developed, alert and awake Orientation/consciousness: patient oriented x3 Limitations: no limitations HENMT: Other: + right ear canal with notable swelling. No drainage. TMs WNL. Poor dentition, no intraoral infection/cellulitis, fluctuance or induration appreciated. Head: Yes normal to inspection Ears: hearing grossly normal bilaterally, TM's normal bilaterally, mastoids abnormal, external ear abnormal auricular tenderness on the right, normal mastoids bilaterally and no periauricular adenopathy General nose exam: Normal external nose present Face and sinus: Yes normal facial exam Mouth: Normal oral and palatal mucosa present Teeth and gingiva: poor dentition Throat: Yes posterior oropharynx normal, Yes uvula midline and No peritonsillar mass Eyes: General: appearance normal, both eyes and all related structures EOM: EOMs intact bilaterally Neck: Neck: Yes normal visual inspection, Yes no lymphadenopathy, Yes no meningeal signs and Yes supple Resp: Effort & Inspection: normal respiratory effort and no stridor Cardio: Rate: regular rate GI: Inspection: Yes normal to inspection Skin: Rashes: no rashes Wounds: no wounds Neuro: General: patient oriented x3 and no meningeal signs Gait exam (Neuro): Normal gait present Extrem: General: Yes normal to inspection MDM - Ear MDM Narrative Medical decision making narrative: On exam VSS, NAD/well-appearing, exam consistent with otitis externa. Mastoids WNL. Differential Diagnosis Differential diagnosis: Likely otitis externa Medical Records Attestation: I reviewed the patient's medical records. Lab Data Attestation: I reviewed the patient's lab results. Discharge Plan Discharge Clinical Impression: Otitis externa Qualifiers: Otitis externa type: unspecified type Chronicity: acute Laterality: right Qualified Code(s): H60.501 - Unspecified acute noninfective otitis externa, right ear Patient Disposition: Home, Self-Care Instructions: Otitis Externa (ED) Additional Instructions: You have an external ear infection. Ciprodex drops are antibacterial and steroid, take as directed If her symptoms persist or worsen, you have hearing loss, fever, chills, or pain persists or worsens please return to the ED, otherwise follow up with her doctor Prescriptions: New ciprofloxacin-dexamethasone [Ciprodex] 0.3-0.1 % drops,suspension 4 drp otic (ears) BID 7 Days RF: 0 No Action lamotrigine 200 mg Tablet 350 mg PO DAILY RF: 0 lamotrigine [Lamictal] 25 mg tablet 25 mg PO DAILY 14 Days Qty: 14 RF: 0 Referrals: Ernesto Mujica MD [Primary Care Provider] - 3 days
== END 2020-12-04 00:26 | disposition home or self-care (01) ==
PROVIDERS: Emergency Provider Emergency Medicine; PCP Internal Medicine
DX: H60.501 Unspecified acute noninfective otitis externa, right ear (principal); H92.01 Otalgia, right ear; Z79.899 Other long term (current) drug therapy
CPT/HCPCS: 99284

== ENCOUNTER 2020-12-09 23:11 | Emergency (ER) | payer MEDICAID, SELFPAY ==
[2020-12-09 23:32] VITALS: BP 111/78; PULSE 72; RESP 16; TEMP 37.1; O2SAT 99; BMI 30.7
[2020-12-10] MEDS: Ibuprofen 600 MG TABLET PO (00:02)
[2020-12-10] MEDS: Amoxicillin/Potassium Clav 875 MG TABLET PO (00:02)
--- NOTE | 2020-12-10 00:05 | ED.EAR ---
HPI - Ear Problem General Chief complaint: Ear Problems Stated complaint: Ear pain Time Seen by Provider: 12/09/20 23:54 Source: patient Mode of arrival: ambulatory Limitations: no limitations History of Present Illness HPI Narrative: Patient been having pain in the right ear canal for last 3 days was seen here 2 days ago and discharged on Cipro ear drops now pain is getting worse slight pain in the back of the ER also but no swelling or redness no nausea no vomiting no fever no trauma to the area no ear discharge MD Complaint: ear pain Related Data Home Medications Medication Instructions Recorded Confirmed lamotrigine 350 mg PO DAILY 06/23/20 06/23/20 Previous Rx's Medication Instructions Recorded lamotrigine [Lamictal] 25 mg PO DAILY 14 Days #14 tab 07/19/20 ciprofloxacin-dexamethasone 4 drp OTIC (EARS) BID 7 Days ml 12/04/20 [Ciprodex] amoxicillin-pot clavulanate 1 tab PO BID #20 tab 12/09/20 [Augmentin] ibuprofen 600 mg PO Q6H PRN #20 tab 12/09/20 Allergies Allergy/AdvReac Type Severity Reaction Status Date / Time clindamycin [CLINDAMYCIN] Allergy Mild RASH Verified 07/19/20 02:32 beeswax [BEESWAX] Allergy Unknown UNK Verified 07/19/20 02:32 caffeine [CAFFEINE] Allergy Unknown UNK Verified 07/19/20 02:32 coconut [COCONUT] Allergy Unknown UNKNOWN Verified 07/19/20 02:32 shellfish derived Allergy Unknown UNK Verified 07/19/20 02:32 [SHELLFISH DERIVED] Sulfa (Sulfonamide Allergy Unknown UNKNOWN Verified 07/19/20 02:32 Antibiotics) [SULFA (SULFONAMIDE ANTIBIOTICS)] lorazepam [From ATIVAN] AdvReac Unknown MOOD CHANGE Verified 07/19/20 02:32 levetiracetam [From Keppra] AdvReac Agitated Verified 07/19/20 02:32 CHOCOLATE Allergy Unknown UNK Uncoded 07/19/20 02:32 Review of Systems Review of Systems: Yes all other systems are reviewed and are negative PMFSH Past Medical History Medical History Seizure Family History Family History Other Family history non-contributory Social History Social History Alcohol intake: never Smoking Status: Never smoker Smoked in Last 30 Days: No Use of substances other than those prescribed or required for medical reasons: No Advance Directives: No Advance Directives Information Provided: No Physical Exam Vital Signs: Vital Signs: Last Vital Signs Temp 98.7 F 12/09/20 23:32 Pulse 72 12/09/20 23:32 Resp 16 12/09/20 23:32 BP 111/78 12/09/20 23:32 Pulse Ox 99 12/09/20 23:32 Body Mass Index 30.7 Const: General: no acute distress and well developed Orientation/consciousness: patient oriented x3 HENMT: Head: Yes normocephalic Ears: hearing grossly normal bilaterally, TM's normal bilaterally, mastoids normal and Abnormal EAC present erythema and EAC tenderness Face and sinus: Yes normal facial exam Mouth: Normal oral and palatal mucosa present Teeth and gingiva: dentition normal Eyes: General: appearance normal, both eyes and all related structures Neck: Neck: Yes normal visual inspection and Yes no lymphadenopathy Resp: Effort & Inspection: normal respiratory effort Auscultation: clear to auscultation bilaterally Cardio: Rate: regular rate Rhythm: regular rhythm Heart sounds: S1 normal heart sound present and S2 normal heart sound present GI: Inspection: Yes normal to inspection Percussion: Yes normal to percussion Neuro: General: patient oriented x3 Discharge Plan Discharge Clinical Impression: Otitis externa of right ear Qualifiers: Otitis externa type: other infective Chronicity: acute Qualified Code(s): H60.391 - Other infective otitis externa, right ear Patient Disposition: Home, Self-Care Instructions: Otitis Externa (ED) Additional Instructions: Take antibiotic as advised. Continue ear drops as prescribed before Pain medicine as advised Report to the ER/PCP if increased pain behind the right ear/fever Prescriptions: New ibuprofen 600 mg tablet 600 mg PO Q6H PRN (Reason: pain) Qty: 20 RF: 0 amoxicillin-pot clavulanate [Augmentin] 875-125 mg tablet 1 tab PO BID Qty: 20 RF: 0 No Action lamotrigine 200 mg Tablet 350 mg PO DAILY RF: 0 ciprofloxacin-dexamethasone [Ciprodex] 0.3-0.1 % drops,suspension 4 drp otic (ears) BID 7 Days RF: 0 lamotrigine [Lamictal] 25 mg tablet 25 mg PO DAILY 14 Days Qty: 14 RF: 0
== END 2020-12-10 00:12 | disposition home or self-care (01) ==
PROVIDERS: Emergency Provider Internal Medicine; PCP Internal Medicine
DX: H60.391 Other infective otitis externa, right ear (principal); H92.01 Otalgia, right ear
CPT/HCPCS: 99283; 99284

== ENCOUNTER 2020-12-22 06:18 | Emergency (ER) | payer MEDICAID, SELFPAY ==
--- NOTE | 2020-12-22 07:29 | ED.EAR ---
HPI - Ear Problem General Stated complaint: ear pain Time Seen by Provider: 12/22/20 07:28 Source: patient Mode of arrival: ambulatory Limitations: no limitations History of Present Illness HPI Narrative: patient with increased right ear pain, patient finished his abx MD Complaint: ear pain Location: right ear Duration: intermittent Severity: mild Relieving factors: NDAIDs Exacerbating factors: nothing Context: recent illness Discharge from ear: no Related Data Home Medications Medication Instructions Recorded Confirmed lamotrigine 350 mg PO DAILY 06/23/20 06/23/20 Previous Rx's Medication Instructions Recorded lamotrigine [Lamictal] 25 mg PO DAILY 14 Days #14 tab 07/19/20 ciprofloxacin-dexamethasone 4 drp OTIC (EARS) BID 7 Days ml 12/04/20 [Ciprodex] amoxicillin-pot clavulanate 1 tab PO BID #20 tab 12/09/20 [Augmentin] ibuprofen 600 mg PO Q6H PRN #20 tab 12/09/20 naproxen [Naprosyn] 500 mg PO BID #20 tab 12/22/20 Allergies Allergy/AdvReac Type Severity Reaction Status Date / Time clindamycin [CLINDAMYCIN] Allergy Mild RASH Verified 07/19/20 02:32 beeswax [BEESWAX] Allergy Unknown UNK Verified 07/19/20 02:32 caffeine [CAFFEINE] Allergy Unknown UNK Verified 07/19/20 02:32 coconut [COCONUT] Allergy Unknown UNKNOWN Verified 07/19/20 02:32 shellfish derived Allergy Unknown UNK Verified 07/19/20 02:32 [SHELLFISH DERIVED] Sulfa (Sulfonamide Allergy Unknown UNKNOWN Verified 07/19/20 02:32 Antibiotics) [SULFA (SULFONAMIDE ANTIBIOTICS)] lorazepam [From ATIVAN] AdvReac Unknown MOOD CHANGE Verified 07/19/20 02:32 levetiracetam [From Keppra] AdvReac Agitated Verified 07/19/20 02:32 CHOCOLATE Allergy Unknown UNK Uncoded 07/19/20 02:32 Review of Systems Constitutional: Constitutional: Reports no additional constitutional complaints Eyes: Eyes: Reports no additional eye complaints ENT: Denies dizziness Cardiovascular: Cardiovascular: Reports no additional cardiovascular complaints Respiratory: Respiratory: Reports as per HPI Gastrointestinal: Gastrointestinal: Reports no additional gastrointestinal complaints Musculoskeletal: Musculoskeletal: Reports no additional musculoskeletal complaints Integumentary/Breasts: Skin/Breast: Denies rash Neurologic: Reports system reviewed and no additional complaints, except as documented, Denies dizziness and Denies Sensory deficit (Neuro) Psychiatric: Psychiatric: Denies anxiety PMFSH Past Medical History Medical History Seizure Family History Family History Other Family history non-contributory Social History Social History Alcohol intake: never Physical Exam Const: General: healthy appearing Nutritional Appearance: average body habitus Orientation/consciousness: oriented to person and patient oriented x3 Limitations: no limitations HENMT: Other: Both TMs are normal, no mastoid pain. patient with severe dental caries on the right upper, rotten down to gums Head: Yes normal to inspection Ears: external ears normal General nose exam: Normal external nose present Mouth: Normal oral and palatal mucosa present and oropharynx normal Throat: Yes posterior oropharynx normal Eyes: General: appearance normal, both eyes and all related structures Neck: Other: supple Neck: Yes normal visual inspection Chest: Chest palpation & inspection: normal inspection of the chest Resp: Auscultation: clear to auscultation bilaterally Cardio: Jugular venous distension: no JVD Rate: regular rate Rhythm: regular rhythm Heart sounds: S1 normal heart sound present and S2 normal heart sound present GI: Inspection: Yes normal to inspection Palpation (GI): Soft to palpation, nontender and No hepatosplenomegaly present Auscultation: normal bowel sounds : General: Yes no CVA tenderness Back/Spine/Pelvis: Back: no CVA tenderness Skin: General skin exam: no rashes or lesions noted Neuro: General: oriented to person and patient oriented x3 Cranial nerves: Yes CN's II-XII intact bilaterally Motor exam (neuro): 5/5 motor strength present throughout Sensory Exam: No Sensory deficit (Neuro) Extrem: General: Yes normal to inspection Psych: Appearance: grossly normal Course Course Course Narrative: Impression is dental pain, no evidence of acute infection, patient just finished antibiotics. Will dc home on NSAIDS Discharge Plan Discharge Clinical Impression: Dental caries Patient Disposition: Home, Self-Care Instructions: Toothache (ED) Additional Instructions: call dentist immediately Prescriptions: New naproxen [Naprosyn] 500 mg tablet 500 mg PO BID Qty: 20 RF: 0 No Action lamotrigine 200 mg Tablet 350 mg PO DAILY RF: 0 ciprofloxacin-dexamethasone [Ciprodex] 0.3-0.1 % drops,suspension 4 drp otic (ears) BID 7 Days RF: 0 ibuprofen 600 mg tablet 600 mg PO Q6H PRN (Reason: pain) Qty: 20 RF: 0 amoxicillin-pot clavulanate [Augmentin] 875-125 mg tablet 1 tab PO BID Qty: 20 RF: 0 lamotrigine [Lamictal] 25 mg tablet 25 mg PO DAILY 14 Days Qty: 14 RF: 0
[2020-12-22 07:39] VITALS: BP 129/84; PULSE 70; RESP 16; TEMP 36.3; O2SAT 100; BMI 30.8
== END 2020-12-22 08:08 | disposition home or self-care (01) ==
LOC: HO.ED 07:45
PROVIDERS: Emergency Provider Emergency Medicine; PCP Internal Medicine
DX: K02.9 Dental caries, unspecified (principal); H92.01 Otalgia, right ear; Z79.899 Other long term (current) drug therapy
CPT/HCPCS: 99284

== ENCOUNTER 2021-01-03 01:04 | Emergency (ER) | payer MEDICAID, SELFPAY ==
[2021-01-03 01:25] VITALS: BP 139/77; PULSE 68; RESP 14; TEMP 36.5; O2SAT 99; BMI 30.7
--- NOTE | 2021-01-03 02:08 | ED_ITS ---
HPI - Dental/Oral General Chief complaint: Dental/Oral Stated complaint: Dental Pain Time Seen by Provider: 01/03/21 02:07 Source: patient Mode of arrival: ambulatory History of Present Illness HPI Narrative: This is a 30-year-old male who presents with several dental caries and dental pain and states that he has been unable to go and get definitive treatment due to his underlying epilepsy which has been uncontrolled until recently. Otherwise, patient denies any fever, chills but does report some mild pain that extends into his right ear. Related Data Home Medications Medication Instructions Recorded Confirmed lamotrigine 350 mg PO DAILY 06/23/20 06/23/20 Previous Rx's Medication Instructions Recorded lamotrigine [Lamictal] 25 mg PO DAILY 14 Days #14 tab 07/19/20 ciprofloxacin-dexamethasone 4 drp OTIC (EARS) BID 7 Days ml 12/04/20 [Ciprodex] amoxicillin-pot clavulanate 1 tab PO BID #20 tab 12/09/20 [Augmentin] ibuprofen 600 mg PO Q6H PRN #20 tab 12/09/20 naproxen [Naprosyn] 500 mg PO BID #20 tab 12/22/20 amoxicillin-pot clavulanate 1 tab PO Q12H 10 Days #20 tab 01/03/21 [Augmentin] Allergies Allergy/AdvReac Type Severity Reaction Status Date / Time clindamycin [CLINDAMYCIN] Allergy Mild RASH Verified 07/19/20 02:32 beeswax [BEESWAX] Allergy Unknown UNK Verified 07/19/20 02:32 caffeine [CAFFEINE] Allergy Unknown UNK Verified 07/19/20 02:32 coconut [COCONUT] Allergy Unknown UNKNOWN Verified 07/19/20 02:32 shellfish derived Allergy Unknown UNK Verified 07/19/20 02:32 [SHELLFISH DERIVED] Sulfa (Sulfonamide Allergy Unknown UNKNOWN Verified 07/19/20 02:32 Antibiotics) [SULFA (SULFONAMIDE ANTIBIOTICS)] lorazepam [From ATIVAN] AdvReac Unknown MOOD CHANGE Verified 07/19/20 02:32 levetiracetam [From Keppra] AdvReac Agitated Verified 07/19/20 02:32 CHOCOLATE Allergy Unknown UNK Uncoded 07/19/20 02:32 Review of Systems Review of Systems: Pertinent positives and negatives as stated in HPI 10 point review of systems is otherwise negative. [facility] Past Medical History Source: nursing notes reviewed Medical History Seizure Family History Family History Other Family history non-contributory Social History Social History Alcohol intake: never Advance Directives: No Advance Directives Information Provided: Yes Physical Exam Vital Signs: Vital Signs: Last Vital Signs Temp 97.7 F 01/03/21 01:25 Pulse 68 01/03/21 01:25 Resp 14 01/03/21 01:25 BP 139/77 01/03/21 01:25 Pulse Ox 99 01/03/21 01:25 Body Mass Index 30.7 VITAL SIGNS: Reviewed. GENERAL: Well developed, well nourished, in no acute distress. HEAD: Normocephalic/atraumatic EYES: PERRLA, EOMI EARS: Ext canals without abnormality, TMs non-bulging and non-erythematous NOSE: Nares patent bilateral OROPHARYNX: no oral lesions noted, posterior pharynx clear, several dental caries noted to the right upper jaw with broken teeth but no discrete abscess or gum swelling observed. NECK: Supple, no adenopathy LUNGS: Normal breath sounds. No adventitious sounds or accessory muscle use. SpO2<99> CARDIOVASCULAR: Regular rate and rhythm without noted murmurs ABDOMEN: Soft, non-tender, non-distended with bowel sounds. Course Course Course Narrative: 30-year-old male with history and clinical presentation consistent with several dental caries and toothache will be placed on antibiotics for 10 days an effort to provide some relief until he gets his EEG and is cleared for a dental procedure by his neurologist. He received initial antibiotics here in the ER and then was discharged in stable condition with remaining course. Discharge Plan Discharge Clinical Impression: Toothache, Dental caries Patient Disposition: Home, Self-Care Instructions: Toothache (ED) Additional Instructions: Recommend using [id number] Tylenol/ibuprofen as needed for pain control. Recommend using [id number] Anbesol for additional symptom relief. Follow-up with a dentist on Sunday morning for re-evaluation. Return to the ER for any acute worsening symptoms. Prescriptions: New amoxicillin-pot clavulanate [Augmentin] 875-125 mg tablet 1 tab PO Q12H 10 Days Qty: 20 RF: 0 No Action lamotrigine 200 mg Tablet 350 mg PO DAILY RF: 0 ciprofloxacin-dexamethasone [Ciprodex] 0.3-0.1 % drops,suspension 4 drp otic (ears) BID 7 Days RF: 0 ibuprofen 600 mg tablet 600 mg PO Q6H PRN (Reason: pain) Qty: 20 RF: 0 amoxicillin-pot clavulanate [Augmentin] 875-125 mg tablet 1 tab PO BID Qty: 20 RF: 0 naproxen [Naprosyn] 500 mg tablet 500 mg PO BID Qty: 20 RF: 0 lamotrigine [Lamictal] 25 mg tablet 25 mg PO DAILY 14 Days Qty: 14 RF: 0 Referrals: Ernesto Mujica MD [Primary Care Provider] - 2 days
[2021-01-03] MEDS: Amoxicillin/Potassium Clav 875 MG TABLET PO (02:26)
== END 2021-01-03 02:35 | disposition home or self-care (01) ==
PROVIDERS: Emergency Provider Student in an Organized Health Care Education/Training Program; PCP Internal Medicine
DX: K02.9 Dental caries, unspecified (principal); G40.909 Epilepsy, unspecified, not intractable, without status epilepticus; Z79.899 Other long term (current) drug therapy
CPT/HCPCS: 99283

== ENCOUNTER 2022-04-27 17:37 | Emergency (ER) | payer MEDICAID, SELFPAY ==
--- NOTE | ~2022-04-27 | XR_ITS ---
EXAMINATION: XR ELBOW, RIGHT CLINICAL INFORMATION: Right elbow pain and swelling COMPARISON: 07/14/2018 TECHNIQUE: AP, lateral, and oblique views of the right elbow. FINDINGS: The bones and soft tissues are normal. No fracture or joint effusion. Alignment is anatomic. Joint spaces are maintained. XR/XR elbow RT 2V IMPRESSION: Normal right elbow.
[2022-04-27 17:40] VITALS: BP 126/79; PULSE 79; RESP 20; TEMP 36.1; O2SAT 97; BMI 29.9
[2022-04-27 17:51] LABS: MANUAL DIFF FLAG NO
[2022-04-27 17:58] LABS: Basophils Percent Auto 0.3 % (0-2); Eosinophils Percent Auto 0.3 % (0-4); Hematocrit 39.9 % (42.0-52.0); Hemoglobin 14.2 g/dl (14.0-18.0); Imm Gran Abs Auto 0.06 X10*3/uL (0.00-0.03); Imm Gran Pct Auto 0.9 % (0.0-0.4); Lymphocytes Absolute Auto 1.2 X10*3/uL (1.2-4.9); Lymphocytes Percent Auto 17.8 % (20-40); Mean Corpuscular HGB Conc 35.6 g/dl (31.0-36.0); Mean Corpuscular Hemoglobin 29.8 pg (27.0-33.0); Mean Corpuscular Volume 83.8 fL (80.0-98.0); Mean Platelet Volume 10.2 fL (9.4-12.4); Monocytes Absolute Auto 0.6 X10*3/uL (0.1-1.2); Monocytes Percent Auto 8.7 % (2-11); Neutrophils Absolute Auto 4.9 x10*3/uL (2.0-8.3); Platelet Count 238 X10*3/uL (160-400); Red Blood Count 4.76 X10*6/uL (4.60-5.80); Red Cell Distribution Width 11.3 % (11.0-16.0); White Blood Count 6.9 X10*3/uL (4.8-10.8)
[2022-04-27 18:06] LABS: Anion Gap 17 (12-20); Blood Urea Nitrogen 10 mg/dL (9-16); Calcium 9.5 mg/dL (8.4-10.2); Carbon Dioxide 23 mmol/L (22-29); Chloride 106 mmol/L (96-108); Creatinine Clr Calc Pharmacy 132.9; Estimated Glomerular Filt Rate > 60; Glucose Random 83 mg/dL (60-115); Potassium 3.8 mmol/L (3.3-5.1); Sodium 142 mmol/L (135-145)
--- NOTE | 2022-04-27 22:04 | ED_ITS ---
HPI - Seizure General Chief Complaint: Seizure Stated Complaint: had seizure an hour ago Time Seen by Provider: 04/27/22 22:04 Source: patient and family Mode of arrival: EMS Limitations: no limitations History of Present Illness HPI Narrative: Patient with history of tonic clonic seizure since 2015 used to be on Lamictal until 07/19 not taking it because of insurance problems today while at work had multiple seizures 3- 4 times lasting for few minutes whole episode lasted for half an hour patient became very combative when EMS arrived they have to help him from the right shoulder complaining of pain in the right shoulder no head injury no fall no tongue bite Seizure History: Yes Related Data Home Medications Medication Instructions Recorded Confirmed lamotrigine 200 mg tablet 350 mg PO DAILY 06/23/20 06/23/20 Previous Rx's Medication Instructions Recorded lamotrigine 25 mg tablet (Lamictal) 25 mg PO DAILY 14 days #14 tabs 07/19/20 ciprofloxacin 0.3 %-dexamethasone 4 drp otic (ears) BID 7 days 12/04/20 0.1 % ear drops,suspension (Ciprodex) amoxicillin 875 mg-potassium 1 tab PO BID #20 tabs 12/09/20 clavulanate 125 mg tablet (Augmentin) ibuprofen 600 mg tablet 600 mg PO Q6H PRN pain #20 tabs 12/09/20 naproxen 500 mg tablet (Naprosyn) 500 mg PO BID #20 tabs 12/22/20 amoxicillin 875 mg-potassium 1 tab PO Q12H 10 days #20 tabs 01/03/21 clavulanate 125 mg tablet (Augmentin) ibuprofen 600 mg tablet 600 mg PO Q6H PRN Pain (Scale 04/27/22 Score 4-6) #30 tabs Allergies Allergy/AdvReac Type Severity Reaction Status Date / Time clindamycin [CLINDAMYCIN] Allergy Mild RASH Verified 07/19/20 02:32 beeswax [BEESWAX] Allergy Unknown UNK Verified 07/19/20 02:32 caffeine [CAFFEINE] Allergy Unknown UNK Verified 07/19/20 02:32 coconut [COCONUT] Allergy Unknown UNKNOWN Verified 07/19/20 02:32 shellfish derived Allergy Unknown UNK Verified 07/19/20 02:32 [SHELLFISH DERIVED] Sulfa (Sulfonamide Allergy Unknown UNKNOWN Verified 12/21/20 02:32 Antibiotics) [SULFA (SULFONAMIDE ANTIBIOTICS)] lorazepam [From ATIVAN] AdvReac Unknown MOOD CHANGE Verified 07/19/20 02:32 levetiracetam [From Keppra] AdvReac Agitated Verified 07/19/20 02:32 CHOCOLATE Allergy Unknown UNK Uncoded 07/19/20 02:32 Review of Systems Review of Systems: Yes all other systems are reviewed and are negative [facility] Past Medical History Medical History Seizure Family History Family History Other Family history non-contributory Social History Social History Alcohol intake: never Advance Directives: No Advance Directives Information Provided: No Physical Exam Vital Signs: Vital Signs: Last Vital Signs Temp 97.0 F 04/27/22 17:40 Pulse 79 04/27/22 17:40 Resp 20 04/27/22 17:40 BP 126/79 04/27/22 17:40 Pulse Ox 97 04/27/22 17:40 O2 Del Method 04/27/22 17:40 BMI result Body Mass Index 29.9 Appearance: Alert. Oriented X3. No acute distress. Eyes: PERRLA, No Nystagmus ENT: Pharynx normal. Oral Mucosa moist Neck: Normal inspection. Neck supple. CVS: Normal heart rate and rhythm. Pulses normal. Respiratory: No respiratory distress. Equal air entry bilateral, no wheezing/rales/rhonchi slight tenderness right upper ribs Abdomen: Soft and nontender. Bowel sounds are present, no mass palpable, no CVA tenderness Skin: Skin warm and dry. Normal skin color. Normal skin turgor. Extremities: No lower extremity edema. No calf tenderness right shoulder diffuse muscular tenderness no bony deformity neurovascular intact Neuro: Oriented X 3. No motor deficit. No sensory deficit.No cerebellar signs , cranial nerves II-XII intact MDM - Seizure MDM Narrative Medical decision making narrative: Patient refused to take any seizure medications at this refused of the ribs wanted done just pain medicine contusion will follow-up with neurologist seizure medications tomorrow Lab Data Attestation: I reviewed the patient's lab results. Result diagrams: 04/27/22 17:48 04/27/22 17:48 Labs: Lab Results 04/27/22 04/27/22 Range/Units 17:48 17:48 WBC 6.9 (4.8-10.8) X10*3/uL RBC 4.76 (4.60-5.80) X10*6/uL Hgb 14.2 (14.0-18.0) g/dl Hct 39.9 L (42.0-52.0) % MCV 83.8 (80.0-98.0) fL MCH 29.8 (27.0-33.0) pg MCHC 35.6 (31.0-36.0) g/dl RDW 11.3 (11.0-16.0) % Plt Count 238 (160-400) X10*3/uL MPV 10.2 (9.4-12.4) fL Immature Gran % (Auto) 0.9 H (0.0-0.4) % Neut % (Auto) 72.0 (45-73) % Lymph % (Auto) 17.8 L (20-40) % [place] % (Auto) 8.7 (2-11) % Eos % (Auto) 0.3 (0-4) % Baso % (Auto) 0.3 (0-2) % Lymph # (Auto) 1.2 (1.2-4.9) X10*3/uL [place] # (Auto) 0.6 (0.1-1.2) X10*3/uL Eos # (Auto) 0.0 (0.0-0.4) X10*3/uL Baso # (Auto) 0.0 (0.0-0.2) X10*3/uL Abs Immat Gran (auto) 0.06 H (0.00-0.03) X10*3/uL Absolute Neuts (auto) 4.9 (2.0-8.3) x10*3/uL Absolute Nucleated RBC 0.000 (0.0-0.012) X10*3/uL Nucleated RBC % (auto) 0.0 (0.0-0.2) /100WBC Sodium 142 (135-145) mmol/L Potassium 3.8 (3.3-5.1) mmol/L Chloride 106 (96-108) mmol/L Carbon Dioxide 23 (22-29) mmol/L Anion Gap 17 (12-20) BUN 10 (9-16) mg/dL Creatinine 0.95 (0.5-1.4) mg/dL Estim Creat Clear Calc 132.9 Estimated GFR > 60 Random Glucose 83 (60-115) mg/dL Calcium 9.5 (8.4-10.2) mg/dL Discharge Plan Discharge Clinical Impression: Generalized seizure, Contusion of arm, right Patient Disposition: Home, Self-Care Instructions: Contusion in Adults (ED), Recurrent Seizures in Adults (ED) Additional Instructions: Call your neurologist tomorrow for medications for seizures Report to the ER if recurrence of seizures Ibuprofen for pain Apply ice wear sling support Prescriptions: New ibuprofen 600 mg tablet 600 mg PO Q6H PRN (Reason: Pain (Scale Score 4-6)) Qty: 30 0RF No Action lamotrigine 200 mg Tablet 350 mg PO DAILY ciprofloxacin-dexamethasone [Ciprodex] 0.3-0.1 % drops,suspension 4 drp otic (ears) BID 7 Days 0RF Rx Instructions: in Right ear ibuprofen 600 mg tablet 600 mg PO Q6H PRN (Reason: pain) Qty: 20 0RF amoxicillin-pot clavulanate [Augmentin] 875-125 mg tablet 1 tab PO BID Qty: 20 0RF naproxen [Naprosyn] 500 mg tablet 500 mg PO BID Qty: 20 0RF lamotrigine [Lamictal] 25 mg tablet 25 mg PO DAILY 14 Days Qty: 14 0RF amoxicillin-pot clavulanate [Augmentin] 875-125 mg tablet 1 tab PO Q12H 10 Days Qty: 20 0RF Interventions: ED Discharge Assessment Last Done: 04/27/22 23:16 Discharge Date/Time: 04/27/22 23:16
--- NOTE | 2022-04-27 22:21 | PC.NURSE ---
Patient declining Oxycodone. requesting Motrin. aware
[2022-04-27] MEDS: Ibuprofen 600 MG TABLET PO (23:09)
== END 2022-04-27 23:16 | disposition home or self-care (01) ==
PROVIDERS: Emergency Provider Internal Medicine; PCP Internal Medicine
DX: G40.409 Other generalized epilepsy and epileptic syndromes, not intractable, without status epilepticus (principal); S40.011A Contusion of right shoulder, initial encounter; W17.89XA Other fall from one level to another, initial encounter; Y93.89 Activity, other specified; Y92.9 Unspecified place or not applicable; Y99.9 Unspecified external cause status
CPT/HCPCS: 36415; 73070; 80048; 85025; 99283

== ENCOUNTER 2023-02-08 13:37 | Emergency (ER) | payer OTHER, SELFPAY ==
--- NOTE | ~2023-02-08 | XR_ITS ---
EXAMINATION: XR CHEST CLINICAL INFORMATION: Chest pain. COMPARISON: Portable chest dated 05/13/2020. TECHNIQUE: 2 views of the chest were obtained. FINDINGS: No significant abnormality is noted involving the heart, lungs, mediastinum, bony thorax or soft tissues. XR/XR chest 2V IMPRESSION: No acute cardiopulmonary process.
--- NOTE | 2023-02-08 13:44 | ECG_ITS ---
Test Reason : cp Blood Pressure : / mmHG Vent. Rate : 070 BPM Atrial Rate : 070 BPM P-R Int : 140 ms QRS Dur : 102 ms QT Int : 378 ms P-R-T Axes : 021 009 024 degrees QTc Int : 408 ms Normal sinus rhythm Minimal voltage criteria for LVH, may be normal variant ( R in aVL ) Borderline ECG When compared with ECG of 02-JUN-2015 18:31, Nonspecific T wave abnormality, worse in Lateral leads Referred By: Generic ED Physician Electronically Signed By:TENZIN VILLATORO MD
--- NOTE | 2023-02-08 14:23 | ED_ITS ---
HPI - General Adult General Chief complaint: Chest Pain Stated complaint: chest and arm pain from urgent care Time Seen by Provider: 02/08/23 19:20 Related Data Home Medications Medication Instructions Recorded Confirmed lamotrigine 200 mg tablet 350 mg PO DAILY 06/23/20 06/23/20 Previous Rx's Medication Instructions Recorded lamotrigine 25 mg tablet (Lamictal) 25 mg PO DAILY 14 days #14 tabs 07/19/20 ciprofloxacin 0.3 %-dexamethasone 4 drp otic (ears) BID 7 days 12/04/20 0.1 % ear drops,suspension (Ciprodex) amoxicillin 875 mg-potassium 1 tab PO BID #20 tabs 12/09/20 clavulanate 125 mg tablet (Augmentin) ibuprofen 600 mg tablet 600 mg PO Q6H PRN pain #20 tabs 12/09/20 naproxen 500 mg tablet (Naprosyn) 500 mg PO BID #20 tabs 12/22/20 amoxicillin 875 mg-potassium 1 tab PO Q12H 10 days #20 tabs 01/03/21 clavulanate 125 mg tablet (Augmentin) ibuprofen 600 mg tablet 600 mg PO Q6H PRN Pain (Scale 04/27/22 Score 4-6) #30 tabs Allergies Allergy/AdvReac Type Severity Reaction Status Date / Time clindamycin [CLINDAMYCIN] Allergy Mild RASH Verified 07/19/20 02:32 beeswax [BEESWAX] Allergy Unknown UNK Verified 07/19/20 02:32 caffeine [CAFFEINE] Allergy Unknown UNK Verified 07/19/20 02:32 coconut [COCONUT] Allergy Unknown UNKNOWN Verified 07/19/20 02:32 shellfish derived Allergy Unknown UNK Verified 07/19/20 02:32 [SHELLFISH DERIVED] Sulfa (Sulfonamide Allergy Unknown UNKNOWN Verified 07/19/20 02:32 Antibiotics) [SULFA (SULFONAMIDE ANTIBIOTICS)] lorazepam [From ATIVAN] AdvReac Unknown MOOD CHANGE Verified 07/19/20 02:32 levetiracetam [From Keppra] AdvReac Agitated Verified 07/19/20 02:32 CHOCOLATE Allergy Unknown UNK Uncoded 07/19/20 02:32 [facility] Past Medical History Medical History Seizure Family History Family History Other Family history non-contributory Social History Social History Alcohol intake: never Smoked in Last 30 Days: No Use of substances other than those prescribed or required for medical reasons: No Advance Directives: No Advance Directives Information Provided: Yes Physical Exam ED Vital Signs: BMI result Body Mass Index 30.7 Course Course Course Narrative: This is a rapid medical exam: Additional HPI, ROS, PE not included below will be deferred to primary provider. Patient is a 32-year-old male with history of epilepsy, not currently on medications, presenting to the emergency department with complaint of burning chest pain and pressure since yesterday, as well as feeling lightheaded. States pain worsened while going for a walk but improved when he came home and laid down. Also reports pain to back of neck after walking last night and generalized weakness. [place] some dyspnea with exertion today. Reports vomiting yesterday, denies any diarrhea or fevers. Plan: EKG, labs, CXR Medical Decision Making Lab Data 02/08/23 14:34 02/08/23 14:34 Labs: Lab Results 02/08/23 02/08/23 02/08/23 Range/Units 14:34 14:34 14:34 WBC 7.1 (4.8-10.8) X10*3/uL RBC 5.13 (4.60-5.80) X10*6/uL Hgb 15.2 (14.0-18.0) g/dl Hct 43.4 (42.0-52.0) % MCV 84.6 (80.0-98.0) fL MCH 29.6 (27.0-33.0) pg MCHC 35.0 (31.0-36.0) g/dl RDW 11.4 (11.0-16.0) % Plt Count 254 (160-400) X10*3/uL MPV 9.9 (9.4-12.4) fL Immature Gran % (Auto) 0.8 H (0.0-0.4) % Neut % (Auto) 62.5 (45-73) % Lymph % (Auto) 26.8 (20-40) % [place] % (Auto) 8.7 (2-11) % Eos % (Auto) 0.8 (0-4) % Baso % (Auto) 0.4 (0-2) % Lymph # (Auto) 1.9 (1.2-4.9) X10*3/uL [place] # (Auto) 0.6 (0.1-1.2) X10*3/uL Eos # (Auto) 0.1 (0.0-0.4) X10*3/uL Baso # (Auto) 0.0 (0.0-0.2) X10*3/uL Abs Immat Gran (auto) 0.06 H (0.00-0.03) X10*3/uL Absolute Neuts (auto) 4.4 (2.0-8.3) x10*3/uL Absolute Nucleated RBC 0.000 (0.0-0.012) X10*3/uL Nucleated RBC % (auto) 0.0 (0.0-0.2) /100WBC D-Dimer High Sensitivty NG/ML Sodium 141 (135-145) mmol/L Potassium 3.6 (3.3-5.1) mmol/L Chloride 104 (96-108) mmol/L Carbon Dioxide 29 (22-29) mmol/L Anion Gap 12 (12-20) BUN 13 (9-16) mg/dL Creatinine 0.86 (0.5-1.4) mg/dL Estim Creat Clear Calc 147.0 Estimated GFR > 60 Random Glucose 77 (60-115) mg/dL Calcium 9.9 (8.4-10.2) mg/dL Troponin I High Sens < 2.7 (<3.5-35.0) ng/L 02/08/23 02/08/23 Range/Units 19:45 19:45 WBC (4.8-10.8) X10*3/uL RBC (4.60-5.80) X10*6/uL Hgb (14.0-18.0) g/dl Hct (42.0-52.0) % MCV (80.0-98.0) fL MCH (27.0-33.0) pg MCHC (31.0-36.0) g/dl RDW (11.0-16.0) % Plt Count (160-400) X10*3/uL MPV (9.4-12.4) fL Immature Gran % (Auto) (0.0-0.4) % Neut % (Auto) (45-73) % Lymph % (Auto) (20-40) % [place] % (Auto) (2-11) % Eos % (Auto) (0-4) % Baso % (Auto) (0-2) % Lymph # (Auto) (1.2-4.9) X10*3/uL [place] # (Auto) (0.1-1.2) X10*3/uL Eos # (Auto) (0.0-0.4) X10*3/uL Baso # (Auto) (0.0-0.2) X10*3/uL Abs Immat Gran (auto) (0.00-0.03) X10*3/uL Absolute Neuts (auto) (2.0-8.3) x10*3/uL Absolute Nucleated RBC (0.0-0.012) X10*3/uL Nucleated RBC % (auto) (0.0-0.2) /100WBC D-Dimer High Sensitivty < 150 NG/ML Sodium (135-145) mmol/L Potassium (3.3-5.1) mmol/L Chloride (96-108) mmol/L Carbon Dioxide (22-29) mmol/L Anion Gap (12-20) BUN (9-16) mg/dL Creatinine (0.5-1.4) mg/dL Estim Creat Clear Calc Estimated GFR Random Glucose (60-115) mg/dL Calcium (8.4-10.2) mg/dL Troponin I High Sens 3.1 (<3.5-35.0) ng/L Discharge Plan Discharge Clinical Impression: Chest pain Patient Disposition: Home, Self-Care Instructions: Chest Pain (DC) Additional Instructions: 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 Return to the emergency room if you are worse a break up in a sweat any concern Prescriptions: No Action lamotrigine 200 mg Tablet 350 mg PO DAILY ciprofloxacin-dexamethasone [Ciprodex] 0.3-0.1 % drops,suspension 4 drp otic (ears) BID 7 Days 0RF Rx Instructions: in Right ear ibuprofen 600 mg tablet 600 mg PO Q6H PRN (Reason: pain) Qty: 20 0RF amoxicillin-pot clavulanate [Augmentin] 875-125 mg tablet 1 tab PO BID Qty: 20 0RF naproxen [Naprosyn] 500 mg tablet 500 mg PO BID Qty: 20 0RF lamotrigine [Lamictal] 25 mg tablet 25 mg PO DAILY 14 Days Qty: 14 0RF amoxicillin-pot clavulanate [Augmentin] 875-125 mg tablet 1 tab PO Q12H 10 Days Qty: 20 0RF ibuprofen 600 mg tablet 600 mg PO Q6H PRN (Reason: Pain (Scale Score 4-6)) Qty: 30 0RF Referrals: Jhon Carlos MD [Physician] - 3 days Interventions: ED Discharge Assessment Last Done: 02/08/23 21:43 Discharge Date/Time: 02/08/23 21:46
[2023-02-08 14:25] VITALS: BP 112/69; PULSE 83; RESP 18; TEMP 36.3; O2SAT 100; BMI 30.7
[2023-02-08 14:38] LABS: MANUAL DIFF FLAG NO
[2023-02-08 14:39] LABS: Basophils Percent Auto 0.4 % (0-2); Eosinophils Absolute Auto 0.1 X10*3/uL (0.0-0.4); Eosinophils Percent Auto 0.8 % (0-4); Hematocrit 43.4 % (42.0-52.0); Hemoglobin 15.2 g/dl (14.0-18.0); Imm Gran Abs Auto 0.06 X10*3/uL (0.00-0.03); Imm Gran Pct Auto 0.8 % (0.0-0.4); Lymphocytes Absolute Auto 1.9 X10*3/uL (1.2-4.9); Lymphocytes Percent Auto 26.8 % (20-40); Mean Corpuscular Hemoglobin 29.6 pg (27.0-33.0); Mean Corpuscular Volume 84.6 fL (80.0-98.0); Mean Platelet Volume 9.9 fL (9.4-12.4); Monocytes Absolute Auto 0.6 X10*3/uL (0.1-1.2); Monocytes Percent Auto 8.7 % (2-11); Neutrophils Absolute Auto 4.4 x10*3/uL (2.0-8.3); Neutrophils Percent Auto 62.5 % (45-73); Platelet Count 254 X10*3/uL (160-400); Red Blood Count 5.13 X10*6/uL (4.60-5.80); Red Cell Distribution Width 11.4 % (11.0-16.0); White Blood Count 7.1 X10*3/uL (4.8-10.8)
[2023-02-08 14:54] LABS: Anion Gap 12 (12-20); Blood Urea Nitrogen 13 mg/dL (9-16); Calcium 9.9 mg/dL (8.4-10.2); Carbon Dioxide 29 mmol/L (22-29); Chloride 104 mmol/L (96-108); Estimated Glomerular Filt Rate > 60; Glucose Random 77 mg/dL (60-115); Potassium 3.6 mmol/L (3.3-5.1); Sodium 141 mmol/L (135-145)
[2023-02-08 15:08] LABS: Troponin-I High Sensitivity < 2.7 ng/L (<3.5-35.0)
--- NOTE | 2023-02-08 19:29 | ED_ITS ---
HPI - Chest Pain General Chief Complaint: Chest Pain Stated Complaint: chest and arm pain from urgent care Time Seen by Provider: 02/08/23 19:20 Source: patient Mode of arrival: ambulatory Limitations: no limitations History of Present Illness HPI narrative: This is 32 years old male with no past medical history presented to emergency department complaining of chest pain and times 24 hour, he also has other compl aint which include nausea vomiting. He is taking antibiotics for a tooth abscess. He was seen at urgent care referred to us the pain is describes as pressure with radiation to the left arm a started 24 hours ago MD complaint: chest pain Onset (ago): day(s) (1) Timing of current episode: episodic Onset: during rest Pain location: substernal and left chest Pain radiation: none Severity: mild Quality: aching Exacerbating factors: nothing Context: other (tooth abscess) Risk Factors Coronary artery disease risk factors: family history of CAD before age 50 Thoracic aortic dissection risk factors: none Related Data Home Medications Medication Instructions Recorded Confirmed lamotrigine 200 mg tablet 350 mg PO DAILY 06/23/20 06/23/20 Previous Rx's Medication Instructions Recorded lamotrigine 25 mg tablet (Lamictal) 25 mg PO DAILY 14 days #14 tabs 07/19/20 ciprofloxacin 0.3 %-dexamethasone 4 drp otic (ears) BID 7 days 12/04/20 0.1 % ear drops,suspension (Ciprodex) amoxicillin 875 mg-potassium 1 tab PO BID #20 tabs 12/09/20 clavulanate 125 mg tablet (Augmentin) ibuprofen 600 mg tablet 600 mg PO Q6H PRN pain #20 tabs 12/09/20 naproxen 500 mg tablet (Naprosyn) 500 mg PO BID #20 tabs 12/22/20 amoxicillin 875 mg-potassium 1 tab PO Q12H 10 days #20 tabs 01/03/21 clavulanate 125 mg tablet (Augmentin) ibuprofen 600 mg tablet 600 mg PO Q6H PRN Pain (Scale 04/27/22 Score 4-6) #30 tabs Allergies Allergy/AdvReac Type Severity Reaction Status Date / Time clindamycin [CLINDAMYCIN] Allergy Mild RASH Verified 07/19/20 02:32 beeswax [BEESWAX] Allergy Unknown UNK Verified 07/19/20 02:32 caffeine [CAFFEINE] Allergy Unknown UNK Verified 07/19/20 02:32 coconut [COCONUT] Allergy Unknown UNKNOWN Verified 07/19/20 02:32 shellfish derived Allergy Unknown UNK Verified 07/19/20 02:32 [SHELLFISH DERIVED] Sulfa (Sulfonamide Allergy Unknown UNKNOWN Verified 07/19/20 02:32 Antibiotics) [SULFA (SULFONAMIDE ANTIBIOTICS)] lorazepam [From ATIVAN] AdvReac Unknown MOOD CHANGE Verified 07/19/20 02:32 levetiracetam [From Keppra] AdvReac Agitated Verified 07/19/20 02:32 CHOCOLATE Allergy Unknown UNK Uncoded 07/19/20 02:32 Review of Systems Constitutional: Constitutional: Reports no additional constitutional complaints Cardiovascular: Cardiovascular: Reports no additional cardiovascular complaints Psychiatric: Psychiatric: Reports no additional psychiatric complaints [facility] Past Medical History [facility] Narrative: denies Medical History Seizure Family History Family History Other Family history non-contributory Social History Social History Alcohol intake: never Smoked in Last 30 Days: No Use of substances other than those prescribed or required for medical reasons: No Advance Directives: No Advance Directives Information Provided: Yes Physical Exam Vital Signs: Vital Signs: Last Vital Signs Temp 97.9 F 02/08/23 20:04 Pulse 60 02/08/23 20:04 Resp 18 02/08/23 20:04 BP 115/67 02/08/23 20:04 Pulse Ox 99 02/08/23 20:04 O2 Del Method Room Air 02/08/23 20:04 BMI result Body Mass Index 30.7 He looks well is not toxic-appearing Const: Orientation/consciousness: oriented to person and patient oriented x3 HEENT: Head: Yes normal to inspection Ears: hearing grossly normal bilaterally General nose exam: Normal external nose present Face and sinus: Yes normal facial exam Mouth: Normal oral and palatal mucosa present Throat: Yes posterior oropharynx normal Neck: Neck: Yes normal visual inspection Chest: Chest palpation & inspection: normal inspection of the chest Resp: Effort & Inspection: normal respiratory effort and able to speak in complete sentences Auscultation: clear to auscultation bilaterally Cardio: Jugular venous distension: no JVD Rate: regular rate Rhythm: regular rhythm GI: Inspection: Yes normal to inspection Palpation (GI): Soft to palpation, not firm, nontender and no guarding Auscultation: normal bowel sounds Skin: General skin exam: no rashes or lesions noted, elasticity normal and turgor normal Lesions: no lesions Rashes: no rashes Neuro: General: oriented to person and patient oriented x3 Cranial nerves: Yes CN's II-XII intact bilaterally Cognition (Neuro): normal cognition Course Course Course Narrative: Patient presented with more than 24 hour of chest pain is 2- troponin, negative D-dimer and normal chest x-ray. His overall healthy I think is reasonable discharge home with follow-up with the PCP and Cardiology most likely will need an outpatient ETT Reevaluation(s) Reevaluation #1: Feels better remained asymptomatic in no distress with stable vital signs Time: 21:38 Medical Decision Making Medical Decision Making [facility] Narrative: Patient presented with chest pain he has a normal electrocardiogram the pain is been going on for about 24 hours initial high sensitive troponin is negative, my plan is to repeat another high sensitive troponin, also do a D-dimer 21:30 negative delta troponins, negative D-dimer normal chest x-ray, pain-free Differential Diagnosis Differential Diagnoses: The differential diagnosis associated with the presentation includes ACS/PE/esophagitis/anxiety Admission/Observation Consideration of admission/observation: Escalation of care including admission/observation considered Lab Data MDM Lab Attestation statement: I reviewed the patient's lab results. 02/08/23 14:34 02/08/23 14:34 Labs: Lab Results 02/08/23 02/08/23 02/08/23 Range/Units 14:34 14:34 14:34 WBC 7.1 (4.8-10.8) X10*3/uL RBC 5.13 (4.60-5.80) X10*6/uL Hgb 15.2 (14.0-18.0) g/dl Hct 43.4 (42.0-52.0) % MCV 84.6 (80.0-98.0) fL MCH 29.6 (27.0-33.0) pg MCHC 35.0 (31.0-36.0) g/dl RDW 11.4 (11.0-16.0) % Plt Count 254 (160-400) X10*3/uL MPV 9.9 (9.4-12.4) fL Immature Gran % (Auto) 0.8 H (0.0-0.4) % Neut % (Auto) 62.5 (45-73) % Lymph % (Auto) 26.8 (20-40) % [place] % (Auto) 8.7 (2-11) % Eos % (Auto) 0.8 (0-4) % Baso % (Auto) 0.4 (0-2) % Lymph # (Auto) 1.9 (1.2-4.9) X10*3/uL [place] # (Auto) 0.6 (0.1-1.2) X10*3/uL Eos # (Auto) 0.1 (0.0-0.4) X10*3/uL Baso # (Auto) 0.0 (0.0-0.2) X10*3/uL Abs Immat Gran (auto) 0.06 H (0.00-0.03) X10*3/uL Absolute Neuts (auto) 4.4 (2.0-8.3) x10*3/uL Absolute Nucleated RBC 0.000 (0.0-0.012) X10*3/uL Nucleated RBC % (auto) 0.0 (0.0-0.2) /100WBC D-Dimer High Sensitivty NG/ML Sodium 141 (135-145) mmol/L Potassium 3.6 (3.3-5.1) mmol/L Chloride 104 (96-108) mmol/L Carbon Dioxide 29 (22-29) mmol/L Anion Gap 12 (12-20) BUN 13 (9-16) mg/dL Creatinine 0.86 (0.5-1.4) mg/dL Estim Creat Clear Calc 147.0 Estimated GFR > 60 Random Glucose 77 (60-115) mg/dL Calcium 9.9 (8.4-10.2) mg/dL Troponin I High Sens < 2.7 (<3.5-35.0) ng/L 02/08/23 02/08/23 Range/Units 19:45 19:45 WBC (4.8-10.8) X10*3/uL RBC (4.60-5.80) X10*6/uL Hgb (14.0-18.0) g/dl Hct (42.0-52.0) % MCV (80.0-98.0) fL MCH (27.0-33.0) pg MCHC (31.0-36.0) g/dl RDW (11.0-16.0) % Plt Count (160-400) X10*3/uL MPV (9.4-12.4) fL Immature Gran % (Auto) (0.0-0.4) % Neut % (Auto) (45-73) % Lymph % (Auto) (20-40) % [place] % (Auto) (2-11) % Eos % (Auto) (0-4) % Baso % (Auto) (0-2) % Lymph # (Auto) (1.2-4.9) X10*3/uL [place] # (Auto) (0.1-1.2) X10*3/uL Eos # (Auto) (0.0-0.4) X10*3/uL Baso # (Auto) (0.0-0.2) X10*3/uL Abs Immat Gran (auto) (0.00-0.03) X10*3/uL Absolute Neuts (auto) (2.0-8.3) x10*3/uL Absolute Nucleated RBC (0.0-0.012) X10*3/uL Nucleated RBC % (auto) (0.0-0.2) /100WBC D-Dimer High Sensitivty < 150 NG/ML Sodium (135-145) mmol/L Potassium (3.3-5.1) mmol/L Chloride (96-108) mmol/L Carbon Dioxide (22-29) mmol/L Anion Gap (12-20) BUN (9-16) mg/dL Creatinine (0.5-1.4) mg/dL Estim Creat Clear Calc Estimated GFR Random Glucose (60-115) mg/dL Calcium (8.4-10.2) mg/dL Troponin I High Sens 3.1 (<3.5-35.0) ng/L Independent Interpretation I performed an independent interpretation of an: EKG and Plain X-Ray Interpretation: EKG shows sinus rhythm a rate is [address]-T changes, normal chest x-ray reviewed by me interpreted by me Radiology Impression Discussion of test interpretation with radiology: I have reviewed the radiologist's reading. 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 Return to the emergency room if you are worse a break up in a sweat any concern Prescriptions: No Action lamotrigine 200 mg Tablet 350 mg PO DAILY ciprofloxacin-dexamethasone [Ciprodex] 0.3-0.1 % drops,suspension 4 drp otic (ears) BID 7 Days 0RF Rx Instructions: in Right ear ibuprofen 600 mg tablet 600 mg PO Q6H PRN (Reason: pain) Qty: 20 0RF amoxicillin-pot clavulanate [Augmentin] 875-125 mg tablet 1 tab PO BID Qty: 20 0RF naproxen [Naprosyn] 500 mg tablet 500 mg PO BID Qty: 20 0RF lamotrigine [Lamictal] 25 mg tablet 25 mg PO DAILY 14 Days Qty: 14 0RF amoxicillin-pot clavulanate [Augmentin] 875-125 mg tablet 1 tab PO Q12H 10 Days Qty: 20 0RF ibuprofen 600 mg tablet 600 mg PO Q6H PRN (Reason: Pain (Scale Score 4-6)) Qty: 30 0RF Referrals: Jhon Carlos MD [Physician] - 3 days
[2023-02-08 20:04] VITALS: BP 115/67; PULSE 60; RESP 18; TEMP 36.6; O2SAT 99
[2023-02-08 20:12] LABS: Troponin-I High Sensitivity 3.1 ng/L (<3.5-35.0)
[2023-02-08 20:33] LABS: D Dimer High Sensitivity < 150 NG/ML
--- NOTE | 2023-02-08 20:56 | PC.NURSE ---
Pt A&Ox4, reports 4/10 left sided chest pain that radiates down Right hand and feeling like pressure/burning. Pt placed on bedside monitor, no apparent distress noted. Pt ambulated independently with steady gait. VSS.
[2023-02-08 21:42] VITALS: BP 120/77; PULSE 70; RESP 18; O2SAT 97
== END 2023-02-08 21:46 | disposition home or self-care (01) ==
PROVIDERS: Registered Nurse Emergency; Emergency Provider Emergency Medicine; PCP Internal Medicine
DX: R07.89 Other chest pain (principal); Z79.899 Other long term (current) drug therapy
CPT/HCPCS: 36415; 71046; 80048; 84484; 85025; 85379; 93005; 99283; 99285

== ENCOUNTER → 2023-02-08 13:44 | Outpatient (BNV) | payer OTHER, SELFPAY | PROVIDERS: PCP Internal Medicine; Visit Provider Internal Medicine Cardiovascular Disease | DX: R07.9 Chest pain, unspecified (principal) | CPT/HCPCS: 93010 ==

== ENCOUNTER 2025-01-27 17:18 | Emergency (ER) | payer SELFPAY ==
[2025-01-27 17:33] VITALS: BP 140/72; PULSE 83; RESP 16; TEMP 36.6; O2SAT 99; BMI 32.3
--- NOTE | 2025-01-27 17:38 | ED.SKABFB ---
HPI - Skin/Abscess/Foreign Bdy General Chief complaint: Skin/Abscess/Foreign Body Stated complaint: poison helen left ankle Time Seen by Provider: 01/27/25 17:38 Source: patient Mode of arrival: ambulatory Limitations: no limitations History of Present Illness ED Provider: Dorita Juarez NP HPI narrative: is a 34-year-old male who presents emergency department for evaluation, 1 week ago he sustained a pruritic red rash to the left medial ankle in the dorsal aspect of his foot after [facility] [place] [facility]. His brother was there as well, who got poison helen. His brother's rash has healed, however he states that although the dorsum of his foot has healed, the medial ankle remains itchy, vesicles have since opened and dried out. Related Data Home Medications ?Medication ?Instructions ?Recorded ?Confirmed lamotrigine 200 mg tablet 350 mg PO DAILY 06/23/20 06/23/20 Previous Rx's ?Medication ?Instructions ?Recorded lamotrigine 25 mg tablet (Lamictal) 25 mg PO DAILY 14 days #14 tabs 07/19/20 ciprofloxacin 0.3 %-dexamethasone 4 drp otic (ears) BID 7 days 12/04/20 0.1 % ear drops,suspension (Ciprodex) amoxicillin 875 mg-potassium 1 tab PO BID #20 tabs 12/09/20 clavulanate 125 mg tablet (Augmentin) ibuprofen 600 mg tablet 600 mg PO Q6H PRN pain #20 tabs 12/09/20 naproxen 500 mg tablet (Naprosyn) 500 mg PO BID #20 tabs 12/22/20 amoxicillin 875 mg-potassium 1 tab PO Q12H 10 days #20 tabs 01/03/21 clavulanate 125 mg tablet (Augmentin) ibuprofen 600 mg tablet 600 mg PO Q6H PRN Pain (Scale 04/27/22 Score 4-6) #30 tabs hydrocortisone 1 % topical cream 1 appl topical QID PRN itching 01/27/25 #28.35 grams Allergies Allergy/AdvReac Type Severity Reaction Status Date / Time clindamycin (CLINDAMYCIN) Allergy Mild RASH Verified 01/27/25 17:38 beeswax (BEESWAX) Allergy Unknown UNK Verified 01/27/25 17:38 caffeine (CAFFEINE) Allergy Unknown UNK Verified 01/27/25 17:38 coconut (COCONUT) Allergy Unknown UNKNOWN Verified 01/27/25 17:38 shellfish derived (SHELLFISH Allergy Unknown UNK Verified 01/27/25 17:38 DERIVED) Sulfa (Sulfonamide Allergy Unknown UNKNOWN Verified 01/27/25 17:38 Antibiotics) (SULFA (SULFONAMIDE ANTIBIOTICS)) lorazepam (From ATIVAN) AdvReac Unknown MOOD CHANGE Verified 01/27/25 17:38 levetiracetam (From Keppra) AdvReac Agitated Verified 01/27/25 17:38 CHOCOLATE Allergy Unknown UNK Uncoded 01/27/25 17:38 Review of Systems Review of Systems: Yes all other systems are reviewed and are negative PMFSH Past Medical History Attestation statement: The following information was validated with the patient. Source: old records reviewed Medical History Seizure Family History Family History Other Family history non-contributory Social History Social History Alcohol intake: never Advance Directives: No Advance Directives Information Provided: No Do you have a plan to hurt others: No Plan Physical Exam Vital Signs: Vital Signs: Last Vital Signs Temp 97.8 F 01/27/25 17:41 Pulse 83 01/27/25 17:41 Resp 16 01/27/25 17:41 BP 140/72 H 01/27/25 17:41 Pulse Ox 99 01/27/25 17:41 O2 Del Method Room Air 01/27/25 17:41 BMI result Body Mass Index 32.3 Appearance: Alert.?Oriented to person, place and time. No acute distress.?Normal affect. CVS: Heart sounds normal. Normal heart rate and rhythm.? Pulses normal.?? Respiratory: No respiratory distress.? Lung sounds clear to auscultation bilaterally?? Skin: Skin warm and dry.? Normal skin color.? Right medial ankle with areas of dried scab lesion, erythematous base, and some vesicular lesions. No surrounding erythema warmth. Extremities: No lower extremity edema.? No calf ttp? Full range of motion to the left ankle. Neuro: Moves all extremities spontaneously. Sensation intact bilaterally. Ambulates with normal steady gait. Medical Decision Making Medical Decision Making [facility] Narrative: Patient is a 34-year-old male who presents emergency department for evaluation of a pruritic rash to the left medial ankle which appears most consistent with contact dermatitis due to an allergic reaction from plant exposure. Variance in reaction stage on examination. Does not appear to be cellulitic surrounding it. No erythema or warmth, full range of motion to the joint not consistent with septic arthritis. No fevers or chills to suggest toxicity. Lower suspicion for herpes zoster. Reviewed conservative treatment. Worrisome signs and symptoms that warrant re-evaluation emergency department. All questions answered. Stable for discharge and outpatient follow-up with primary care provider Differential Diagnosis Differential Diagnoses: The differential diagnosis associated with the presentation includes ( see narrative above) External Record Review External record reviewed: Outpatient record Prescription Management I considered prescription management with: Other ( hydrocortisone, antihistamine OTC) Discharge Plan Discharge Clinical Impression: Contact dermatitis Qualifiers: Contact dermatitis type: irritant Patient Disposition: Home, Self-Care Instructions: Contact Dermatitis (ED) Additional Instructions: rash appears consistent with healing poison helen reaction. You may trial topical hydrocortisone for the itch, though given the current stage it may not be of great benefit for you. You may trial Benadryl in the evening to help with sleep though likely it will not help with the itching. You may return with any new or worsening symptoms or concerns. Follow-up with primary care provider as needed. Prescriptions: New hydrocortisone 1 % cream 1 appl topical QID PRN (Reason: itching) Qty: 28.35 0RF No Action lamotrigine 200 mg Tablet 350 mg PO DAILY ciprofloxacin-dexamethasone [Ciprodex] 0.3-0.1 % drops,suspension 4 drp otic (ears) BID 7 Days 0RF Rx Instructions: in Right ear ibuprofen 600 mg tablet 600 mg PO Q6H PRN (Reason: pain) Qty: 20 0RF amoxicillin-pot clavulanate [Augmentin] 875-125 mg tablet 1 tab PO BID Qty: 20 0RF naproxen [Naprosyn] 500 mg tablet 500 mg PO BID Qty: 20 0RF lamotrigine [Lamictal] 25 mg tablet 25 mg PO DAILY 14 Days Qty: 14 0RF amoxicillin-pot clavulanate [Augmentin] 875-125 mg tablet 1 tab PO Q12H 10 Days Qty: 20 0RF ibuprofen 600 mg tablet 600 mg PO Q6H PRN (Reason: Pain (Scale Score 4-6)) Qty: 30 0RF Referrals: Ernesto Mujica MD [Primary Care Provider, Internal Medicine] Interventions: ED Discharge Assessment Last Done: 01/27/25 17:41 Discharge Date/Time: 01/27/25 17:47 Print Language: Nauruan
[2025-01-27 17:41] VITALS: BP 140/72; PULSE 83; RESP 16; TEMP 36.6; O2SAT 99
== END 2025-01-27 17:47 | disposition home or self-care (01) ==
PROVIDERS: Emergency Provider Emergency Medicine; PCP Internal Medicine
DX: L23.7 Allergic contact dermatitis due to plants, except food (principal); Z79.899 Other long term (current) drug therapy
CPT/HCPCS: 99282; 99283